=== PATIENT | male | born 1980 | race Caucasian/White ===

== ENCOUNTER 2024-02-21 19:26 | Emergency (ER) | payer MEDICAID, SELFPAY ==
[2024-02-21] VITALS (8 sets, daily range): BP systolic 99–136; BP diastolic 65–93; PULSE 95–158; RESP 20–22; TEMP 36.8; O2SAT 95–99; BMI 22.5
--- NOTE | 2024-02-21 19:53 | CT_ITS ---
STUDY: CT FACIAL BONES WITH CONTRAST REASON FOR EXAM: Male, 43 years old. post op pain. Recent repair of deviated septum. RADIATION DOSAGE (If Supplied By Facility): CTDIvol = ( 29.38 ) mGy, DLP = ( 738.45 ) mGycm TECHNIQUE: The patient was scanned in a multi detector CT scanner. Transaxial imaging was performed following the intravenous administration of IV 100mL Isovue-[id number]. Sagittal and coronal images were reconstructed. Individualized dose optimization techniques were used for this CT. COMPARISON: None. FINDINGS: There appears to be Packing material along both sides of the nasal septum, correlate with surgical history. Nasal septum currently appears to be grossly midline. Extensive soft tissue density pelvis all of the ethmoid air cells, much of the frontal sinuses, and both maxillary sinuses. The left maxillary sinus is completely opacified. The right shows an air fluid. Grossly normal appearance of the orbits. No fractures of the orbital bashir. There appear to be bilateral medial antrectomies. CT/Sinus/Facial Bone WITH Contras IMPRESSION: Pansinusitis status post septal surgery with what appear to be bilateral medial antrectomies. Question of surgical packing material along both sides of the nasal passages. Currently the nasal septum is midline. Electronically Signed: Rogers Hector MD at 21:52 EDT ,
[2024-02-21] MEDS: fentaNYL 100 MCG/2 ML Ampul 50 MCG IV (20:04)
[2024-02-21 20:07] LABS: Absolute Lymphocyte Count 2.21 X10^3/uL (0.83-4.51); Absolute Neutrophil Count 4.5 X10^3/uL (2.0-7.7); Basophil# 0.05 X10^3/uL; Basophil% 0.6 % (0-1); Eosinophil# 0.06 X10^3/uL; Eosinophils% 0.8 % (0-5); Hematocrit 41.4 % (40-54); Hemoglobin 14.6 g/dL (13.0-16.5); Lymphocyte # 2.21 X10^3/ul (0.83-4.51); Lymphocyte % 27.8 % (19-41); Mean Corp Hgb Conc 35.3 g/dL (32-36); Mean Corpuscular Hgb 31.3 pg (27.0-32.0); Mean Corpuscular Volume 88.8 fL (80-94); Mean Platelet Vol. 9.2 fl (6.2-12.0); Monocyte# 1.14 X10^3/uL; Monocyte% 14.3 % (0-10); NRBC Flagged by Analyzer 0 % (0-5); Neutrophil # 4.45 X10^3/uL (2.7-7.7); Neutrophil % 55.9 % (47-70); Platelet Count 271 K/mm3 (150-450); RBC Distribution Width CV 12.1 % (11.6-14.6); RBC Distribution Width SD 38.9 fl (35.1-43.9); Red Blood Count 4.66 M/mm3 (4.6-6.2)
--- OUTSIDE RECORDS SUMMARY | 2024-02-21 20:18 | XMS RPT_ITS | CCD ---
Author Organization [facility] Care Team Providers Care Composite Worker Name Role Phone PHYSICIAN, NOT RECORDED Primary Care Physician U navailable Unavailable Primary Care Provider Unavailabl e Sheets DOSavana Primary Care Provider [phone] SAVANA LOUIE Attending Unavailable SAVANA LOUIE Primary Care Unavailable Sheets DOSavana Primary Care Provider [phone] ALBERTO ALVAREZ Admitting Unavailable SAVANA LOUIE Primary Care Unavailable ALBERTO ALVAREZ Attending Unavailable SAVANA LOUIE Primary Care Unavailable ALBERTO ALVAREZ Attending Unavailable ALBERTO ALVAREZ Attending Unavailable ALBERTO ALVAREZ Referring Unavailable Medications Current Medications Medication Drug Class(es) Dates Sig (Normalized) Sig (Original) acetaminophen 325 mg / HYDROcodone bitartrate 5 mg oral tablet (2 sources) Opioid Agonist Start: 02-16-2024 End: 02-21-2024 take 1 tablet by mouth every six hours as needed for pain HYDROcodone-aceta minophen (Wagener) 5-325 MG tablet Indications: Deviated nasal septum Take 1 tablet by mouth every 6 hours as needed for severe pain (7-10) for up to 5 days. 20 tablet 02/16/2024 02/21/2024 Active fluticasone propionate 0.05 mg/actuat metered dose nasal spray (2 sources) Corticosteroid Start: 09-16-2023 take 2 spray(s) nasal route once daily fluticasone (Flonase) 50 MCG/ACT nasal spray Administer 2 sprays into each nostril daily. 09/16/2023 Active melatonin 10 mg oral tablet (1 source) take 3 tablets by mouth once daily at bedtime melatonin 10 mg tab Take 30 mg by mouth daily at bedtime. Active QUEtiapine 25 mg oral tablet (2 sources) Atypical Antipsychotic take 1 tablet by mouth once daily QUEtiapine (SEROquel) 25 MG tablet Take 25 mg by mouth Nightly. Active traZODone hydrochloride 50 mg oral tablet (1 source) Serotonin Reuptake Inhibitor Start: 05-16-2023 take 1 tablet by mouth once daily at bedtime traZODone (DESYREL) 50 mg tablet Indications: Chronic insomnia Take 1 tablet by mouth daily at bedtime. 30 tablet 11 05/16/2023 Active Completed/Discontinued Medications Medication Drug Class(es) Dates Sig (Normalized) Sig (Original) acetaminophen 500 mg oral tablet (2 sources) Start: 02-16-2024 End: 02-16-2024 1,000 mg, Oral, Once, On Jazmin 02/16/24 at 0615, For 1 dose, Preprocedure, Administer 60 minutes prior to surgery. ALPRAZolam 0.5 mg disintegrating oral tablet (2 sources) Benzodiazepine Start: 02-16-2024 End: 02-16-2024 0.5 mg, Oral, PRN, anxiety, Starting on Jazmin 02/16/24 at 0616, Preprocedure, Using dry hands, place tablet on top of tongue and allow to disintegrate. Administration with water is not necessary. calcium chloride 0.0014 meq/ml / potassium chloride 0.004 meq/ml / sodium chloride 0.103 meq/ml / sodium lactate 0.028 meq/ml injectable solution (2 sources) Start: 02-16-2024 End: 02-16-2024 take 50 mL intravenously every hour 50 mL/hr, IntraVENous, Continuous, Starting on Jazmin 02/16/24 at 0615, Preprocedure, Upon admission to sameday - please start iv if patient does not have iv access. Use 500ml NS for patients on dialysis. 1 ml diphenhydrAMINE hydrochloride 50 mg/ml cartridge (2 sources) Histamine-1 Receptor Antagonist Start: 02-16-2024 End: 02-16-2024 12.5 mg, IntraVENous, Once PRN, itching, Starting on Jazmin 02/16/24 at 0942, For 1 dose, Recovery (only) 1 ml HYDROmorphone hydrochloride 1 mg/ml cartridge (4 sources) Opioid Agonist Start: 02-16-2024 End: 02-16-2024 0.5 mg, IntraVENous, Every 5 min PRN, severe pain (7-10), Starting on Jazmin 02/16/24 at 0942, For 4 doses, Recovery (only), For Phase I. If Phase II oral narcotics have been administered in the last 60 minutes, do not administer IV narcotics unless specifically approved by provider. Start: 02-16-2024 End: 02-16-2024 0.25 mg, IntraVENous, Every 5 min PRN, moderate pain (4-6), Starting on Jazmin 02/16/24 at 0942, For 4 doses, Recovery (only), For Phase I. If Phase II oral narcotics have been administered in the last 60 minutes, do not administer IV narcotics unless specifically approved by provider. labetalol (Normodyne,Trandate) injection 5 mg (2 sources) Start: 02-16-2024 End: 02-16-2024 labetalol (Normodyne,Trandate) injection 5 mg 1 ml LORazepam 2 mg/ml injection (4 sources) Benzodiazepine Start: 02-16-2024 End: 02-16-2024 0.5 mg, IntraVENous, Once PRN, for anxiety or muscle spasm., Starting on Jazmin 02/16/24 at 0942, For 1 dose, Recovery (only), For IV doses dilute dose with 1ml NS. LORazepam (Ativa n) 1 MG tablet Take 1 mg by mouth as needed for anxiety. Active 1 ml meperidine hydrochloride 25 mg/ml cartridge (2 sources) Opioid Agonist Start: 02-16-2024 End: 02-16-2024 12.5 mg, IntraVENous, Every 5 min PRN, shivering, Starting on Jazmin 02/16/24 at 0942, For 2 doses, Recovery (only), May give every 5 minutes to max of 25mg. Notify Anesthesia Provider before administration. 2 ml ondansetron 2 mg/ml injection (2 sources) Serotonin-3 Receptor Antagonist Start: 02-16-2024 End: 02-16-2024 4 mg, IntraVENous, Once PRN, nausea, Starting on Jazmin 02/16/24 at 0942, For 1 dose, Recovery (only), Initial antiemetic therapy. oxyCODONE (2 sources) Opioid Agonist Start: 02-16-2024 End: 02-16-2024 oxyCODONE (Roxicodone) immediate release tablet 5 mg oxymetazoline hydrochloride 0.5 mg/ml nasal spray (2 sources) Start: 02-16-2024 End: 02-16-2024 2 spray, Each Nostril, Senior Internet Sales Consultant to [employer]., On Jazmin 02/16/24 at 0615, For 1 dose, Preprocedure 50 ml sodium chloride 9 mg/ml injection (8 sources) Start: 02-16-2024 End: 02-16-2024 500 mL, IntraVENous, at 1,000 mL/hr, Administer over 0.5 Hours, PRN, Anti-nausea, Starting on Jazmin 02/16/24 at 0942, Recovery (only), Indications: Anti-nausea Start: 02-16-2024 End: 02-16-2024 take 100 mL intravenously every hour as needed, then take 20 mL intravenously every hour as needed 5-250 mL/hr, IntraVENous, PRN, if patient receiving piggyback infusions and maintenance fluids are not ordered OR KVO fluids to protect IV site / prevent frequent line interruptions / long duration, Starting on Jazmin 02/16/24 at 0603, Preprocedure, For piggyback infusion, administer at same rate as piggyback for a total of 25 mL. Enter 25 mL into dose field and piggyback rate into rate field of order. If piggyback is infusing at a rate less than 100 mL/hr, enter 25 mL into dose field and 100 mL/hr into rate field of order. For KVO fluids, enter rate of 20 mL/hr or less into rate field of order. Start: 02-16-2024 End: 02-16-2024 5-40 mL, IntraVENous, PRN, l ine care, After every IV line use, Starting on Jazmin 02/16/24 at 0603, Preprocedure, For Line Patency: Peripheral IV = 5 mL; Midline or Central Line = 10 mL/lumen. If following IV push medication, administer flush at same rate as the IV push. Flush volume is determined by type of infusion therapy being given. For non-viscous solutions use: Peripheral IV = 5 mL Midline or Central Line = 10 mL/lumen For viscous solutions (i.e. blood components, parenteral nutrition, contrast media, or after obtaining blood sample) use: Peripheral IV = 10 mL Midline or Central Line = 20 mL/lumen Start: 02-16-2024 End: 02-16-2024 take 5-40 mL intravenously every twelve hours 5-40 mL, IntraVENous, Every 12 hours, First dose on Jazmin 02/16/24 at 0615, Preprocedure, For Line Patency: Peripheral IV = 5 mL; Midline or Central Line = 10 mL/lumen. If following IV push medication, administer flush at same rate as the IV push. Flush volume is determined by type of infusion therapy being given. For non-viscous solutions use: Peripheral IV = 5 mL Midline or Central Line = 10 mL/lumen For viscous solutions (i.e. blood components, parenteral nutrition, contrast media, or after obtaining blood sample) use: Peripheral IV = 10 mL Midline or Central Line = 20 mL/lumen Problems Active Problems Problem Classification Problem Date Documented Da te Episodic/Chronic Anxiety disorders (3 sources) Anxiety disorder; Translations: [Anxiety disorder, unspecified] Onset: 12-11-2022 Chronic Miscellaneous mental health disorders (2 sources) Chronic insomnia; Translations: [Psychophysiologic insomnia] Onset: 05-16-2023 05-16-2023 Chronic Other upper respiratory disease (3 sources) Chronic rhinitis; Translations: [Chronic rhinitis] Onset: 02-16-2024 02-16-2024 Chronic Other upper respiratory disease (1 source) Chronic rhinitis; Translations: [Chronic rhinitis] Onset: 02-16-2024 Chronic Other upper respiratory disease (3 sources) Deviated nasal septum; Translations: [Deviated nasal septum] Onset: 05-16-2023 05-16-2023 Episodic Other upper respiratory disease (3 sources) Deviated nasal septum; Translations: [Deviated septum] Onset: 05-16-2023 Episodic Other upper respiratory disease (3 sources) Hypertrophy of nasal turbinates; Translations: [Hypertrophy of nasal turbinates] Onset: 02-16-2024 02-16-2024 Episodic Other upper respiratory disease (1 source) Hypertrophy of nasal turbinates; Translations: [Hypertrophy of nasal turbinates] Onset: 02-16-2024 Episodic Other upper respiratory infections (8 sources) Chronic maxillary sinusitis; Translations: [Chronic maxillary sinusitis] Onset: 02-16-2024 02-16-2024 Chronic Past or Other Problems Problem Classification Problem Date Documented Da te Episodic/Chronic Cardiac dysrhythmias (2 sources) Palpitations; Translations: [Palpitations] Onset: 12-11-2022 Episodic Other ear and sense organ disorders (1 source) Tinnitus of left ear; Translations: [Tinnitus, left ear] Onset: 05-16-2023 05-16-2023 Episodic Other ear and sense organ disorders (1 source) Tinnitus, left ear; Translations: [Tinnitus of left ear] Onset: 05-16-2023 Episodic Other screening for suspected conditions (not mental disorders or infectious disease) (5 sources) Encounter for screening for lipoid disorders; Translations: [Encounter for screening for other suspected endocrine disorder] Onset: 05-16-2023 Episodic Other upper respiratory disease (4 sources) Nasal congestion; Translations: [Nasal congestion] Onset: 09-29-2023 09-29-2023 Episodic Other upper respiratory disease (1 source) Nasal congestion; Translations: [Nasal congestion] Onset: 09-29-2023 Episodic Results Test Name Value Interpretation Reference Range Facility Nursing Noteon 02-16-2024 Nursing Note Pt awake and taking with DR. Alvarez and his who is in the room, pt states he is ready to go, declines offer of something to drink, rates pain at a 4 and states this is tolerable to him Phase II indicated, pt awake and talking, VS stable, pt dressed and ambulated to wheelchair without difficulty, home going instructions reviewed with patient, verbal understanding demonstrated and opportunity given for questions Normal [facility] Nursing Note Pt received from OR via cart, spont. Resp. With PURCHASING SUPERVISOR in attendance. Placed on monitor. Monitor alarms on in PACU Pt awake and talking Normal [facility] Op Noteon 02-16-2024 Op Note OPERATIVE NOTE Patient Name: Heraclio Keys DATE OF PROCEDURE: 02/16/2024 SURGEON: Alberto Alvarez DO PREOPERATIVE DIAGNOSES: Pre-op Diagnosis * Deviated nasal septum [J34.2] * Chronic maxillary sinusitis [J32.0] * Chronic ethmoidal sinusitis [J32.2] * Chronic rhinitis [J31.0] * Hypertrophy of nasal turbinates [J34.3] POSTOPERATIVE DIAGNOSES: same PROCEDURE: Procedure(s): SEPTOPLASTY; BILATERAL INFERIOR TURBINATE REDUCTION; BILATERAL LATERA IMPLANT; BILATERAL MAXILLARY ANTROSTOMY; BILATERAL TOTAL ETHMOIDECTOMY; STEREOTACTIC COMPUTER-ASSISTED (NAVIGATIONAL) PROCEDURE SUBMUCOUS RESECTION INFERIOR TURBINATE REPAIR OF NASAL VALVE COLLAPSE WITH SUBCUTANEOUS/SUBMUC OSAL LATERAL WALL IMPLANT(S) NASAL SINUS ENDOSCOPY WITH MAXILLARY ANTROSTOMY NASAL SINUS ENDOSCOPY WITH ETHMOIDECTOMY TOTAL ANTERIOR AND POSTERIOR STEREOTACTIC CRANIOTOMY CRANIAL EXTRADURAL ENDOSCOPIC EXCISION LEBRON BULLOSA LEFT MIDDLE TURBINATE ANESTHESIA: General COMPLICATIONS: NONE ESTIMATED BLOOD LOSS: Minimal GROSS FINDINGS: Nasal endoscopy reveals a significant septal deviation to the right with spurring over the maxillary crest to the left. There is bilateral inferior turbinate enlargement, right-sided more than left. The left middle turbinate was bulbous due to an underlying lebron bullosa. There is a polyp filling the left middle meatus. There is marked amount of edema circumferentially and obstructing the left maxillary sinus. Mucosal edema extended throughout the ethmoid air cells on the left anteriorly more so. The left maxillary sinus was completely filled with yellow purulence. The right middle turbinate was atrophic. There is moderate edema within the mucosa of the right middle meatus. There were a couple moderately sized polyps located within the posterior right ethmoids. DESCRIPTION OF PROCEDURE: Anterior rhinoscopy was performed. The nasal mucosa was locally infiltrated using 1% lidocaine with 1: 100,000 epinephrine into the anterior aspect of the left and right anterior septal mucosa regions. Good blanching of the mucosa was evident as the injection was provided in a submucosal plane. 4% cocaine packs were then applied to cotton plexus and placed within the left right nasal cavities. Time was allowed for vasoconstriction. During this time the facial area was prepped with a Betadine solution and the patient draped in the usual sterile fashion. Note that the endoscopic portion of the surgery was performed using one 0 degree rigid endoscope with its image projected onto a monitor for viewing by all operating room personnel. Sinus dissection was performed using the [employer] microdebrider with a 4.0 mm aggressive cutting bur placed in an oscillation mode. The left lebron bullosa was then addressed, which caused a bulbous affect compromising the middle meatus. The debrider was positioned within the middle meatus with the serrated teeth applied against the lateral aspect of the middle turbinate and lamellar bone. The lateral aspect was carefully shaved to remove the lamellar bone and lateral mucosa taking care to ensure stability of the lebron bone superiorly. The mucosa and lateral lamella were shaved until the entire underlying air cell pocket was exposed, especially by involving the middle turbinate. The medial middle turbinate with its attachment superiorly remained intact. The left maxillary sinus was then addressed. 1% lidocaine with 1: 100,000 epinephrine was infiltrated into the uncinate process and middle turbinate followed by placement of a 4% cocaine packed within the meatus itself. The uncinate process was identified. A side-biting forceps was used to create a posterior to anterior infundibulotomy incision in the midportion of the uncinate process. The shaver device was used to debride and remove the superior and inferior halves of the uncinate process. The natural ostia of the maxillary sinus was identified in this location confirmed with a sinus seeker. Any edematous mucosa was shaved free from its inferior and posterior aspects using the debrider. The left ethmoids were then dissected. The bulla ethmoidalis was entered using the microdebrider shaver. It was entered within its inferior medial aspect. An anterior ethmoidectomy was performed. The basal lamella was then dissected as the posterior ethmoid air cells were then exposed and ventilated. Dissection throughout was completed by removing any thickened and edematous mucosa as well as the bony septations. Dissection was carried posteriorly to a depth of 7 cm as measured from the nasal vestibule. Dissection was then carried anteriorly along the roof of the ethmoids using a curette, up-biting forceps, and the shaver device. All bony septations were removed to create a well ventilated ethmoid cavity. The right maxillary sinus was then addressed. 1% lidocaine with 1: 100,000 epinephrine was infiltrated (more content not included)... [facility] [id number] 02-09-2024 [id number] Telemedicine: Patient was seen today via Telehealth by agreement and consent. I used the following Telehealth technology: Audio & Video Visit This patient encounter is appropriate and reasonable under the circumstances given the patient's particular presentation at this time with the plan to undergo a surgical procedure located at an outpatient surgical center. The patient has been advised of the potential risks and limitations of this mode of treatment (including but not limited to the absence of in-person examination) and has agreed to be treated in a remote fashion in spite of them. Any and all of the patient's/patient's family's questions on this issue have been answered and I have made no promises or guarantees to the patient. The patient has also been advised to contact their PCP or surgeon's office for worsening conditions or problems, and seek emergency medical treatment and/or call 911 if the patient deems either necessary. The patient stated that they are currently in the state [facility]. If the patient is a minor, permission has been obtained by the parent or guardian for the patient to receive medical care at this visit. The patient verbally consented to the visit held via telephone/video call. The patient understands the limitations of not being physically examined and that we may not be able to address all issues via a telehealth visit. Pre-Surgical History Name: Heraclio Keys : 1980 (Age-43 y.o.) Date of Service: Pt seen/examined on 02/09/2024 Chief Complaint: Pre-surgical evaluation, deviated septum History Of Present Illness: We are asked to see/evaluate Heraclio Keys, a 43 y.o. male for pre-operative evaluation prior to Procedure Information Date/Time: 02/16/24 59 Procedures: SEPTOPLASTY; BILATERAL INFERIOR TURBINATE REDUCTION; BILATERAL LATERA IMPLANT; BILATERAL MAXILLARY ANTROSTOMY; BILATERAL TOTAL ETHMOIDECTOMY; STEREOTACTIC COMPUTER-ASSISTED (NAVIGATIONAL) PROCEDURE (Nose) - total time 180 minutes SUBMUCOUS RESECTION INFERIOR TURBINATE (Bilateral: Nose) REPAIR OF NASAL VALVE COLLAPSE WITH SUBCUTANEOUS/SUBMUC OSAL LATERAL WALL IMPLANT(S) (Bilateral: Nose) NASAL SINUS ENDOSCOPY WITH MAXILLARY ANTROSTOMY (Bilateral: Nose) NASAL SINUS ENDOSCOPY WITH ETHMOIDECTOMY TOTAL ANTERIOR AND POSTERIOR (Bilateral: Nose) STEREOTACTIC CRANIOTOMY CRANIAL EXTRADURAL (Head) Location: [address] Operating Room Surgeons: Alberto Alvarez DO Heraclio Keys presents with c/o chronic nasal obstruction and recurrent sinus infections x several years. Also endorses nasal congestion, rhinorrhea, facial pressure, and drainage. Denies fever. Conservative measures have provided little relief. Has elected for procedure above. Anesthesia Assessment BMI Classification: Normal Weight (BMI 18.5-24.9) Allergies: Patient has no known allergies. If patient has opioid allergy, is it okay to take Acetaminophen: N/A Any Problems with Anesthesia?: Past General Anesthetic without complications History of Difficult Intubation?: None reported Family History of Problems with Anesthesia?: None noted Overall Dentition: Teeth intact with none loose, has gold tooth top left towards the back Dentures: None Partials: None Mallampati PAT assesment: 2 Mouth Size: WNL TMD: >4cm Neck: WNL GERD:None Implantable Devices:None PAT Pain Score:1 +Pre-op anxiety METs (>4 METS implies low cardiovascular risk from surgery): Reports >4 METs - Able to climb a flight of stairs without chest pain Cardiac Stents:No History of CVA:No History of Seizures:No COPD/Asthma:No MARCELLA: Noncompliant on CPAP Anticoagulant/Antip latelet Therapy: No Chronic Steroid Use:No Chronic Narcotic Use: No Social History: ETOH: reports that he does not currently use alcohol. Social History Substance and Sexual Activity Drug Use Never TOBACCO: reports that he does not have a smoking history on file. His smokeless tobacco use includes chew. Tobacco:Patient instructed preoperatively not to smoke day of surgery and patient received smoking cessation counseling. ASA Score:2 Cardiac EKG: No results found for this or any previous visit. ECHO and EF: No results found for this or any previous visit. ASSESSMENT/PLAN: Based on the above evaluation, the benefits of the planned procedure likely exceed the risks. The patient is medically optimized to proceed with the intermediate - level 1 risk procedure/surgery with no reducible risk factor and without any further cardiopulmonary testing. 1) Deviated nasal septum [J34.2], Chronic maxillary sinusitis [J32.0], Chronic ethmoidal sinusitis [J32.2], Chronic rhinitis [J31.0], Hypertrophy of nasal turbinates [J34.3] - Deferred to surgeon - Pre-surgical instructions given to patient - No further workup required per PAT Protocol Labs Ordered: No EKG Ordered: No Sleep Referral Ordered: NO - ALREADY DIAGNOSED WITH MARCELLA (more content not included)... [facility] PREPROCINSon 02-09-2024 PREPROCINS Medication List Accurate as of February 09, 2024 10:23 AM. Always use your most recent med list. LORazepam 1 MG tablet Commonly known as: Ativan Medication Adjustments for Surgery: Other (Comment) Notes to patient: Take as needed QUEtiapine 25 MG tablet Commonly known as: SEROquel Medication Adjustments for Surgery: Take night before surgery Preparing for Your Surgical Procedure Day of Surgery Please arrive 2 hours prior to your scheduled surgery time Arrange for a responsible adult to drive you home after surgery Bring a photo ID and your insurance information Take a bath or shower using antibacterial soap such as Dial or Safeguard before coming to the hospital Do not shave the skin around your surgical site Wash your hair Wear loose fitting clothing to go home in Take medications as directed Do not bring valuables to the hospital Do not wear jewelry, piercings, makeup, hair spray, powder, lotion, deodorant You may bring dentures, hearing aids, and eyeglasses (please do not wear contacts on the day of surgery) Anesthesia Instructions for Eating and Drinking Take your instructed medicines with water [place] your teeth, floss, use mouth wash No food 8 hours prior to your scheduled surgery time (includes tube feeds) We encourage you to drink clear fluids up to 2 hours prior your scheduled surgery time, including: Water Apple or cranberry juice (NO orange juice, nothing with pulp) Black coffee or clear tea (NO creamer or milk) Clear soda Sports drinks Patients with diabetes, please opt for a ?zero? sugar clear fluid, as surgery may be cancelled or delayed for blood sugar >250 on the day of surgery Medications Take medications as directed Pain medications You may take your prescription pain medications You may take Tylenol for pain NO Motrin, Ibuprofen, or Advil for 24 hours prior to surgery or longer if instructed by your surgeon No Aleve or Naprosyn for 5 days prior to surgery or longer if instructed by your surgeon IF YOU TAKE BLOOD THINNERS OR ASPIRIN: N/A Lab work If lab work was ordered during your Tele-PAT visit, please complete them at a [facility] lab as soon as possible. Your nearest [facility] lab can be found on the [facility] website at: [email or web address] [facility] labs located within [facility]: [email or web address] Miscellaneous information If you have sleep apnea and use a CPAP, please bring your CPAP to the hospital the morning of surgery No marijuana (THC), smoking, or alcohol for 24 hours prior to surgery The use of recreational drugs may result in your surgery being cancelled We encourage you to write down any questions you may have for the surgeon, anesthesiologist, or other members of the surgical team and bring it with you the day of surgery. [place] Entrance Instructions Enter through Door number 2 Registration department is located here Patient will be escorted to [facility] does not open before 6am If you become ill or display other medical problems before your procedure, please let your surgeon know right away. Normal [facility] CNCOon 12-19-2023 CNCO Letter Text Normal [facility] CNPNon 12-19-2023 CNPN Telephone (AGFAMPLE) ---- ANGHERACLIO Meza ([phone]) 1980 M Date Time Provider Department 12/19/23 SAVANA LOUIE During your visit today, we recorded the following information about you: Kemi Hutton 12/19/2023 4:41 PM Signed No Show Documentation Heraclio Keys no showed for an appointment on 12/19/23 with Savana Louie DO at 4:00 pm. He was scheduled for shoulder pain. I called and was unable to speak with the patient regarding his missed appointment. Heraclio did not state the reason that he missed his appointment was because unable to reach pt . Resources discussed/offered to patient: unable to leave message. No show determined to be fault of patient: Yes This is the patients first no show in the last 12 months. Patient was rescheduled for NA. Letter sent through [employer]. Is this the Third or Fourth No Show ? No Kemi Hutton December 19, 2023 4:39 PM Allergies As of Date: 12/19/2023 (No Known Allergies) Date Reviewed: 05/16/2023 Reviewed by: Savana Louie DO - Fully Assessed Reason for Visit: No Show [1558] Cmt: Pt no showed for appt on 12/19/23 Prescriptions as of 12/19/2023 - melatonin 10 mg tab Take 30 mg by mouth daily at bedtime. - traZODone (DESYREL) 50 mg tablet Take 1 tablet by mouth daily at bedtime. Problem List As Of Date 12/19/2023 Noted Resolved Deviated septum [J34.2] 05/16/2023 Tinnitus of left ear [H93.12] 05/16/2023 CHECO (generalized anxiety disorder) [F41.1] 05/16/2023 Chronic insomnia [F51.04] 05/16/2023 Encounter Status:Closed by KEMI HUTTON AKASH on 12/19/23 Normal [facility] CT MAXILLOFACIAL WO IV CONTR Stanislav 10-03-2023 CT MAXILLOFACIAL WO IV CONTRAST Patient Name: HERACLIO KEYS : 1980 Exam Date/Time: 09/29/2023 16:40 Procedure: CT MAXILLOFACIAL WO IV CONTRAST Ordering Provider: ALVAREZ MARK Reason For Exam: R09.81 CT SINUSES - IMAGE GUIDED PROTOCOL: CLINICAL INDICATION: Chronic sinusitis. TECHNIQUE: Spiral transaxial sequence was performed through the head, maxillofacial region, including orbits and sinuses, from the level of the skull base through the vertex with 1 mm slice thickness at 1 mm intervals. Coronal and sagittal reconstruction was included. Dose reduction was employed with automated exposure control. COMPARISON: None FINDINGS: There is complete aspiration of the left maxillary sinus. Bulging of the medial wall the maxillary sinuses noted and there is mucosal thickening within left ethmoid air cells. Minimal mucosal thickening also noted within the right maxillary sinus. Remaining paranasal sinuses are clear. The left middle turbinate is partially obscured. Remaining turbinates are unremarkable. Septum is slightly deviated to the right along its midportion by up to 0.5 cm. The mastoid air cells are clear. Rudimentary evaluation of the brain demonstrates no apparent focal lesion throughout the cerebrum or cerebellum. The ventricles maintain normal size and configuration. There is no apparent extracerebral collection. IMPRESSION: Opacified left maxillary sinus and left anterior ethmoid air cells. Report Dictated on Electronically Signed By: Mukesh Harvey MD Electronically Signed Date/Time: 10/03/2023 11:55 AM EDT TROUBLE BREATHING BROKEN NOSE A FEW TIMES WHEN HE WAS YOUNGER Normal [facility] CT Maxillofacial region WO a nd W contrast Charlene 10-03-2023 Opacified left maxillary sinus and left anterior ethmoid air cells. Report Dictated on Electronically Signed By: Mukesh Harvey MD Electronically Signed Date/Time: 10/03/2023 11:55 AM EDT [facility] Patient Name: HERACLIO KEYS : 1980 Exam Date/Time: 09/29/2023 16:40 Procedure: CT MAXILLOFACIAL WO IV CONTRAST Ordering Provider: ALVAREZ MARK Reason For Exam: R09.81 CT SINUSES - IMAGE GUIDED PROTOCOL: CLINICAL INDICATION: Chronic sinusitis. TECHNIQUE: Spiral transaxial sequence was performed through the head, maxillofacial region, including orbits and sinuses, from the level of the skull base through the vertex with 1 mm slice thickness at 1 mm intervals. Coronal and sagittal reconstruction was included. Dose reduction was employed with automated exposure control. COMPARISON: None FINDINGS: There is complete aspiration of the left maxillary sinus. Bulging of the medial wall the maxillary sinuses noted and there is mucosal thickening within left ethmoid air cells. Minimal mucosal thickening also noted within the right maxillary sinus. Remaining paranasal sinuses are clear. The left middle turbinate is partially obscured. Remaining turbinates are unremarkable. Septum is slightly deviated to the right along its midportion by up to 0.5 cm. The mastoid air cells are clear. Rudimentary evaluation of the brain demonstrates no apparent focal lesion throughout the cerebrum or cerebellum. The ventricles maintain normal size and configuration. There is no apparent extracerebral collection. [facility] Mukesh Harvey MD - 10/03/2023 Patient Name: HERACLIO KEYS : 1980 Exam Date/Time: 09/29/2023 16:40 Procedure: CT MAXILLOFACIAL WO IV CONTRAST Ordering Provider: ALVAREZ MARK Reason For Exam: R09.81 CT SINUSES - IMAGE GUIDED PROTOCOL: CLINICAL INDICATION: Chronic sinusitis. TECHNIQUE: Spiral transaxial sequence was performed through the head, maxillofacial region, including orbits and sinuses, from the level of the skull base through the vertex with 1 mm slice thickness at 1 mm intervals. Coronal and sagittal reconstruction was included. Dose reduction was employed with automated exposure control. COMPARISON: None FINDINGS: There is complete aspiration of the left maxillary sinus. Bulging of the medial wall the maxillary sinuses noted and there is mucosal thickening within left ethmoid air cells. Minimal mucosal thickening also noted within the right maxillary sinus. Remaining paranasal sinuses are clear. The left middle turbinate is partially obscured. Remaining turbinates are unremarkable. Septum is slightly deviated to the right along its midportion by up to 0.5 cm. The mastoid air cells are clear. Rudimentary evaluation of the brain demonstrates no apparent focal lesion throughout the cerebrum or cerebellum. The ventricles maintain normal size and configuration. There is no apparent extracerebral collection. IMPRESSION: Opacified left maxillary sinus and left anterior ethmoid air cells. Report Dictated on Electronically Signed By: Mukesh Harvey MD Electronically Signed Date/Time: 10/03/2023 11:55 AM EDT [facility] CT Maxillofacial region WO a nd W contrast IVOrdered By: Mukesh Harvey on 10-03-2023 [facility] Work Phone: CT Maxillofacial region WO a nd W contrast Charlene 09-29-2023 Radiology Study observation (narrative) [facility] CNOVon 05-16-2023 CNOV Office Visit (AGFAMPLE) ---- HERACLIO KEYS ([id number]) 1980 M Date Time Provider Department 05/16/23 3:00 PM SAVANA LOUIE During your visit today, we recorded the following information about you: Temperature Pulse Respiration Blood pressure 98 degrees 64/minute 16/minute 112/72 Weight Height 73.5 kg 1.791 m Savana Louie DO 05/17/2023 2:00 PM Signed SUBJECTIVE: 43 year old male here to establish. I have fully reviewed the past medical, surgical, social and family history and updated the Histories section of [facility]. He has had anxiety and insomnia since he was a child He has taken OTC meds, but they caused his stomach to be upset Melatonin is not working He has always had social anxiety, has been able to control it up until now He had a couple of tragedies in the recent past He had a panic attack at work, went to the ED because he thought he was having a heart attack He quit his job because of the anxiety He has trouble falling asleep and occasionally is awakened by twitches and shock-like sensations in his whole body He would like a referral to a psychiatrist He broke his nose when he was 14 or 15 years old He is now having trouble breathing from his right nostril He has had ringing in his left ear for about 1-1/2 years He drinks 1-2 cups of tea in the morning, but no other caffeinated beverages throughout the day ALLERGIES No Known Allergies Current Outpatient Medications Medication Sig Dispense Refill melatonin 10 mg tab Take 30 mg by mouth daily at bedtime. pseudoephedrine (SUDAFED) 30 mg tablet Take 2 tablets by mouth twice daily. (Patient not taking: Reported on 05/16/2023) 20 tablet 0 fluticasone (FLONASE) 50 mcg/actuation nasal spray Use 2 Sprays in each nostril once daily. Rinse mouth after use. (Patient not taking: Reported on 05/16/2023) 1 Bottle 0 No current facility-administer ed medications for this visit. There is no problem list on file for this patient. Social History Tobacco Use Smoking status: Former Types: Cigarettes Smokeless tobacco: Current Types: Chew Vaping Use Vaping Use: Never used Substance Use Topics Alcohol use: Not Currently Drug use: Never Family History Problem Relation Age of Onset Diabetes Mother Hypertension Mother Hyperlipidemia Mother Stroke Mother Hyperlipidemia Sister Hypertension Sister Diabetes Sister Colon Cancer Maternal Grandmother Colon Cancer Maternal Grandfather Reviewed past medical history, family history and surgeries. All medications and supplements were reviewed with the patient. REVIEW OF SYSTEMS GENERAL: No weight loss, malaise or fevers HEENT: positive for tinnitus b/l, left greater than right, trouble breathing from right nare, negative for frequent or significant headaches, NECK: Negative for lumps, goiter, pain and significant neck swelling RESPIRATORY: Negative for cough, hemoptysis, wheezing, COPD, dyspnea or shortness of breath CARDIOVASCULAR: Negative for chest pain, leg swelling, hypertension, CHF or palpitations GI: No nausea, vomiting, or diarrhea : No history of dysuria, frequency or incontinence MUSCULOSKELETAL: Negative for joint pain or swelling, back pain or muscle pain SKIN: Negative for lesions, rash, and itching PSYCH: Positive for anxiety, insomnia HEMATOLOGY/LYMPHOLO GY: Negative for prolonged bleeding, bruising easily or swollen nodes ENDOCRINE: Negative for cold or heat intolerance, polyuria, polydipsia and goiter NEURO: No history of headaches, syncope, paralysis, seizures or tremors PHYSICAL EXAMINATION: BP 112/72 Pulse 64 Temp 36.7 ?C (98 ?F) Resp 16 Ht 179.1 cm (5' 10.5 ) Wt 73.5 kg (162 lb) SpO2 98% BMI 22.92 kg/m? General appearance: Well appearing, alert, in no acute distress, well-hydrated, well nourished. Skin: Skin color, texture, turgor normal, no suspicious rashes or lesions Head: Normocephalic, no masses, lesions, tenderness or abnormalities, septum deviated to the right Eyes: Anicteric sclera. Pupils are equally round and reactive to light. Extraocular movements are intact. Ears: External ears normal, canals clear Oropharynx: Lips, mucosa, and tongue normal, teeth and gums normal, oropharynx normal Neck: Supple, no adenopathy; thyroid symmetric, normal size, no bruits Back: Normal exam Lungs: Lungs clear to auscultation. No wheezing, rhonchi, rales. Heart: RRR without murmur, gallop, or rubs. No ectopy Abdomen: Normal abdominal exam, Abdomen soft, non-tender. Bowel sounds normal. No masses, organomegaly Extremities: No deformities, edema, skin discoloration, clubbing or cyanosis. Good capillary refill. Musculoskeletal: No joint swelling, deformity, or tenderness Peripheral pulses: Normal Neuro: Gait normal. Reflexes normal and symmetric. Sensation grossly intact. ASSESSMENT/PLAN: 1. We (more content not included)... Normal [facility] LABORATORYOrdered By: SYSTEM SYSTEM on 12-11-2022 Troponin I.cardiac DL <= 0.01 ng/mL [Mass/Vol] 4.6 ng/L Invalid Interpretation Code 0.0 - 76.2 ng/L AO ADM SS Basophil, Absolute 0.0 103/mcL Invalid Interpretation Code 0.0 - 0.2 10^3/mcL AO Workflow SS Basophils/100 WBC (Bld) 0.8 % Invalid Interpretation Code 0.0 - 2.5 % AO Workflow SS Calcium [Mass/Vol] 9.2 mg/dL Invalid Interpretation Code 8.4 - 10.2 mg/dL AO ADM SS Chloride [Moles/Vol] 93 mmol/L Invalid Interpretation Code 98 - 107 mmol/L AO ADM SS CO2 [Moles/Vol] 27 mmol/L Invalid Interpretation Code 22 - 29 mmol/L AO ADM SS Creatinine [Mass/Vol] 1.01 mg/dL Invalid Interpretation Code 0.70 - 1.30 mg/dL AO ADM SS Electrolyte Balance 15.0 mEq/L Invalid Interpretation Code 4.0 - 15.0 mEq/L AO ADM SS Eosinophil, Absolute 0.0 103/mcL Invalid Interpretation Code 0.0 - 0.4 10^3/mcL AO Workflow SS Eosinophils/100 WBC (Bld) 0.8 % Invalid Interpretation Code 0.0 - 7.0 % AO Workflow SS Erythrocyte distribution width (RBC) [Ratio] 12.4 % Invalid Interpretation Code 11.5 - 14.5 % AO Workflow SS Ethanol [Mass/Vol] 6 mg/dL Invalid Interpretation Code 0 - 3 mg/dL AO ADM SS Free T3 [Mass/Vol] 2.82 pg/mL Invalid Interpretation Code 2.30 - 4.00 pg/mL AO ADM SS Free T4 [Mass/Vol] 0.94 ng/dL Invalid Interpretation Code 0.76 - 1.46 ng/dL AO ADM SS GFR/1.73 sq M.predicted among blacks MDRD (S/P/Bld) [Vol rate/Area] 99 ml/min/1.73sqm Invalid Interpretation Code AO Chemistry S Comment on above: Interpretive Data: GFR Population mean for , Non- Americans Ages 20-29 = 116 mL/min/1.73 sq.m. Ages 30-39 = 107 mL/min/1.73 sq.m. Ages 40-49 = 99 mL/min/1.73 sq.m. Ages 50-59 = 93 mL/min/1.73 sq.m. Ages 60-69 = 85 mL/min/1.73 sq.m. Ages 70+ = 75 mL/min/1.73 sq.m. Chronic Kidney Disease: Less than 60 mL/min/1.73 square meters End Stage Renal Disease: Less than 15 mL/min/1.73 square meters GFR/1.73 sq M.predicted among non-blacks MDRD (S/P/Bld) [Vol rate/Area] 82 ml/min/1.73sqm Invalid Interpretation Code AO Chemistry S Comment on above: Interpretive Data: GFR Population mean for , Non- Americans Ages 20-29 = 116 mL/min/1.73 sq.m. Ages 30-39 = 107 mL/min/1.73 sq.m. Ages 40-49 = 99 mL/min/1.73 sq.m. Ages 50-59 = 93 mL/min/1.73 sq.m. Ages 60-69 = 85 mL/min/1.73 sq.m. Ages 70+ = 75 mL/min/1.73 sq.m. Chronic Kidney Disease: Less than 60 mL/min/1.73 square meters End Stage Renal Disease: Less than 15 mL/min/1.73 square meters Glucose [Mass/Vol] 298 mg/dL Invalid Interpretation Code 70 - 105 mg/dL AO ADM SS Hematocrit (Bld) [Volume fraction] 44.8 % Invalid Interpretation Code 42.0 - 52.0 % AO Workflow SS Hemoglobin (Bld) [Mass/Vol] 15.3 G/dL Invalid Interpretation Code 14.0 - 18.0 G/dL AO Workflow SS Lymphocyte, Absolute 0.9 103/mcL Invalid Interpretation Code 0.8 - 3.9 10^3/mcL AO Workflow SS Lymphocytes/100 WBC (Bld) 19.4 % Invalid Interpretation Code 10.0 - 50.0 % AO Workflow SS Magnesium [Mass/Vol] 1.7 mg/dL Invalid Interpretation Code 1.8 - 2.4 mg/dL AO ADM SS MCH (RBC) [Entitic mass] 32.4 pg Invalid Interpretation Code 27.0 - 31.2 pg AO Workflow SS MCHC 34.2 G/dL Invalid Interpretation Code 31.8 - 35.4 G/dL AO Workflow SS MCV (RBC) [Entitic vol] 94.7 fL Invalid Interpretation Code 80.0 - 94.0 fL AO Workflow SS Monocyte distribution width Auto (Bld) [Entitic vol] 16.61 1 Invalid Interpretation Code 0.00 - 20.00 AO Workflow SS Comment on above: Result Comment: For ED adult patients suspected of sepsis, MDW<=20.0 does not rule out sepsis or risk of sepsis Monocyte, Absolute 0.2 103/mcL Invalid Interpretation Code 0.2 - 1.0 10^3/mcL AO Workflow SS Monocytes/100 WBC (Bld) 5.4 % Invalid Interpretation Code 1.7 - 13.0 % AO Workflow SS Natriuretic peptide.B prohormone N-Terminal [Mass/Vol] 26 pg/mL Invalid Interpretation Code 0 - 125 pg/mL AO ADM SS Comment on above: Interpretive Data: N T-proBNP results of less than 300 pg/mL effectively rules out acute congestive heart failure with 99% negative predictive value. Neutrophil, Absolute 3.3 103/mcL Invalid Interpretation Code 2.9 - 6.2 10^3/mcL AO Workflow SS Neutrophils/100 WBC (Bld) 73.6 % Invalid Interpretation Code 37.0 - 80.0 % AO Workflow SS Platelet mean volume (Bld) [Entitic vol] 7.4 fL Invalid Interpretation Code 7.4 - 10.4 fL AO Workflow SS Platelets (Bld) [#/Vol] 277 103/mcL Invalid Interpretation Code 130 - 400 10^3/mcL AO Workflow SS Potassium [Moles/Vol] 4.4 mmol/L Invalid Interpretation Code 3.5 - 5.1 mmol/L AO ADM SS RBC (Bld) [#/Vol] 4.73 106/mcL Invalid Interpretation Code 4.04 - 6.13 10^6/mcL AO Workflow SS Salicylates [Mass/Vol] mg/dL Invalid Interpretation Code 2.8 - 20.0 mg/dL AO ADM SS Sodium [Moles/Vol] 135 mmol/L Invalid Interpretation Code 136 - 145 mmol/L AO ADM SS Troponin I.cardiac DL <= 0.01 ng/mL [Mass/Vol] ng/L Invalid Interpretation Code 0.0 - 76.2 ng/L AO ADM SS TSH Qn 0.35 m[IU]/L Invalid Interpretation Code 0.36 - 3.74 mcIU/mL AO ADM SS Urea nitrogen [Mass/Vol] 13 mg/dL Invalid Interpretation Code 7 - 18 mg/dL AO ADM SS Urea nitrogen/Creatinine [Mass ratio] 13 ratio Invalid Interpretation Code 7 - 27 ratio AO ADM SS WBC (Bld) [#/Vol] 4.5 103/mcL Invalid Interpretation Code 4.6 - 10.8 10^3/mcL AO Workflow SS LABORATORYOrdered By: Nimo Sharp on 12-11-2022 Acetaminophen [Mass/Vol] mcg/mL Invalid Interpretation Code 10.0 - 30.0 mcg/mL AO Chemistry S Amphetamines Screen Ql (U) Negative (12/11/22 11:05 AM) Invalid Interpretation Code AO Manual Urine SS Appearance (U) Clear (12/11/22 11:05 AM) Invalid Interpretation Code Clear AO Auto Urine SS Barbiturates Screen Ql (U) Negative (12/11/22 11:05 AM) Invalid Interpretation Code AO Manual Urine SS Benzodiazepines Ql (U) Positive (12/11/22 11:05 AM) Invalid Interpretation Code AO Manual Urine SS Benzoylecgonine Screen Ql (U) Negative (12/11/22 11:05 AM) Invalid Interpretation Code AO Manual Urine SS Bilirubin Ql (U) Small *ABN* (12/11/22 11:05 AM) Invalid Interpretation Code Negative AO Auto Urine SS Cannabinoids tested Screen Nom (U) Negative (12/11/22 11:05 AM) Invalid Interpretation Code AO Manual Urine SS Color (U) Yellow (12/11/22 11:05 AM) Invalid Interpretation Code AO Auto Urine SS Fibrin D-dimer DDU (PPP) [Mass/Vol] ng/mL D-DU Invalid Interpretation Code 0 - 230 ng/mL D-DU AO [facility] SS Comment on above: Interpretive Data: T he result of the D-Dimer test should be evaluated in the context of all the clinical and laboratory data available. In those instances where the laboratory result does not agree with the clinical evaluation, additional tests should be performed accordingly. If the D-Dimer result is used to exclude DVT or PE, the recommended cutoff value is less than 230 ng/mL. The D-Dimer result should not be used alone to rule in DVT/PE, but should be used in conjunction with a clinical pretest probability (PTP)assessment model to exclude venous thromboembolism (VTE) in outpatients suspected of deep venous thrombosis (DVT) and pulmonary embolism (PE). Glucose Test strip (U) [Mass/Vol] 500 mg/dL Invalid Interpretation Code Negative AO Auto Urine SS Hemoglobin Auto test strip (U) [Mass/Vol] Negative (12/11/22 11:05 AM) Invalid Interpretation Code Negative AO Auto Urine SS Ketones Ql (U) >=160 mg/dL Invalid Interpretation Code Negative AO Auto Urine SS Methadone Screen Ql (U) Negative (12/11/22 11:05 AM) Invalid Interpretation Code AO Manual Urine SS Opiates Screen Ql (U) Negative (12/11/22 11:05 AM) Invalid Interpretation Code AO Manual Urine SS Phencyclidine Ql (U) Negative (12/11/22 11:05 AM) Invalid Interpretation Code AO Manual Urine SS Tricyclic antidepressants Screen Ql (U) Negative (12/11/22 11:05 AM) Invalid Interpretation Code AO Manual Urine SS UA Leuk Est Negative (12/11/22 11:05 AM) Invalid Interpretation Code Negative AO Auto Urine SS UA Nitrite Negative (12/11/22 11:05 AM) Invalid Interpretation Code Negative AO Auto Urine SS UA pH 5.5 (12/11/22 11:05 AM) Invalid Interpretation Code 5.0 - 8.0 AO Auto Urine SS UA Protein Negative Invalid Interpretation Code Negative AO Auto Urine SS UA Spec Grav >=1.030 *ABN* (12/11/22 11:05 AM) Invalid Interpretation Code 1.015-1.025 AO Auto Urine SS UA Specimen Type Void (12/11/22 11:05 AM) Invalid Interpretation Code AO Auto Urine SS UA Urobilinogen 0.2 E.U./dL Invalid Interpretation Code 0.2-1.0 AO Auto Urine SS CNPNon 06-29-2020 [facility] Telephone ([facility]) ---- HERACLIO KEYS ([id number]) 1980 M Date Time Provider Department 06/29/20 DASHAWN BALDERRAMA) [facility] During your visit today, we recorded the following information about you: Dashawn Balderrama PA-C 06/29/2020 8:01 AM Signed Let patient know their covid19 test was negative. Jayashree Duran Ma 06/29/2020 4:01 PM Signed Unable to reach patient. Left VM to return call to office. Please read below and advise. Jayashree Sahu LPN 06/30/2020 8:03 AM Signed Patient returned call and went over results from urgent care provider with understanding. Allergies As of Date: 06/29/2020 (No Known Allergies) Date Reviewed: 06/28/2020 Reviewed by: Marilynn Gracia Ma - Fully Assessed Reason for Visit: Results [95] Prescriptions as of 06/29/2020 Sig: AMOXICILLIN 875 MG-POTASSIUM * Take 1 tablet by mouth twice * PSEUDOEPHEDRINE 30 MG TABLET Take 2 tablets by mouth twice* FLUTICASONE PROPIONATE 50 MCG* Use 2 Sprays in each nostril * Problem List As Of Date: 06/29/2020 (None) Encounter Status:Closed by CHILO SAHU LPN on 06/30/20 [facility] CNOVon 06-28-2020 CNOV Office Visit ([facility]) ---- HERACLIO KEYS ([id number]) 1980 M Date Time Provider Department 06/28/20 2:15 PM FABI CARLSON [facility] During your visit today, we recorded the following information about you: Temperature Pulse Respiration Blood pressure 98.4 degrees 76/minute 16/minute 142/72 Weight 70.3 kg Fabi Carlson APRN.ASHLEY 06/28/2020 3:02 PM Signed Subjective The history is provided by the patient. No medical language specialist was used. Heraclio Keys is a 40 year old male who presents today for CC of sinus pressure that is worsening. Symptoms started about a week ago, and have worsening in past 24 hours. His is also having nasal congestion, post nasal drainage. He states that 3 weeks ago had similar symptoms and they seemed to get better but the past week, started all over again. Symptoms include: Fever (?100.4F): No or Chills: Yes Cough: No Shortness of breath: No or Difficulty breathing: No Fatigue: Yes Muscle aches: No Headache: Yes New loss of smell or taste: No Sore throat: No Nasal congestion: Yes or Rhinorrhea: Yes Nausea: No or Vomiting: No Diarrhea: No OTC meds/remedies that patient has tried: OTC cold medicine and saline. High risk category assessment No high risk factors Exposures: Sick contacts? Yes Family or close contacts with confirmed/probable COVID-19 in last 14 days? No He reports that he has never smoked. He uses smokeless tobacco. BP 142/72 Pulse 76 Temp 36.9 ?C (98.4 ?F) (Tympanic) Resp 16 Wt 70.3 kg (155 lb) SpO2 98% Social History Tobacco Use - Smoking status: Never Smoker - Smokeless tobacco: Current User Substance Use Topics - Alcohol use: Not on file - Drug use: Not on file No past medical history on file. I have confirmed and edited as necessary, the [facility] Review of Systems Constitutional: Negative for chills and fever. HENT: Positive for congestion and sinus pain. Negative for ear pain and sore throat. Respiratory: Negative for cough, sputum production, shortness of breath and wheezing. Cardiovascular: Negative for chest pain. Musculoskeletal: Negative for myalgias. Neurological: Positive for headaches. Objective Physical Exam Constitutional: He is well-developed, well-nourished, and in no distress. HENT: Head: Normocephalic and atraumatic. Right Ear: Tympanic membrane, external ear and ear canal normal. Left Ear: Tympanic membrane, external ear and ear canal normal. Nose: Mucosal edema and rhinorrhea present. Right sinus exhibits no maxillary sinus tenderness and no frontal sinus tenderness. Left sinus exhibits frontal sinus tenderness. Left sinus exhibits no maxillary sinus tenderness. Mouth/Throat: Uvula is midline and mucous membranes are normal. No oropharyngeal exudate, posterior oropharyngeal edema, posterior oropharyngeal erythema or tonsillar abscesses. Cardiovascular: Normal rate, regular rhythm and normal heart sounds. Pulmonary/Chest: Effort normal and breath sounds normal. He has no decreased breath sounds. He has no wheezes. He has no rhonchi. He has no rales. Lymphadenopathy: Head (right side): No submental, no submandibular, no tonsillar and no preauricular adenopathy present. Head (left side): No submental, no submandibular, no tonsillar and no preauricular adenopathy present. He has no cervical adenopathy. Right cervical: No superficial cervical adenopathy present. Left cervical: No superficial cervical adenopathy present. Nursing note and vitals reviewed. ASSESSMENT/PLAN: 1. Nasal congestion - ICD9: 478.19, ICD10: R09.81 (primary diagnosis) Flonase 2 sprays in each nostril once a day Tylenol (generic acetaminophen) 500 mg-2 tabs every 8 hrs. as needed for fever and aches Ibuprofen 600 mg (3-200mg tablets) every 6 hours -Sudafed (generic is fine), behind the counter, 2x30 mg tabs twice daily as needed for congestion 2. Sinus pain - ICD9: 478.19, ICD10: J34.89 Possible sinusitis due to unilateral sinus pain Start augmentin 3. Suspected COVID-19 virus infection - ICD9: V01.79, ICD10: Z20.822 Home isolation Testing ordered Comfort measures discussed When to seek higher level of care Notified in 24-48 hours with results, available on [employer] - 2019 CORONAVIRUS - Meets symptom-based criteria for testing and is low risk. - Patient scheduled for testing at the time of visit. - Instructed to isolate pending test results - Discussed symptom monitoring and supportive care - Red flag symptoms requiring follow up discussed This patient encounter involved the screening or treatment of novel coronavirus infection (COVID-19). Diagnosis and treatment plan were discussed and questions were answered to the patient's satisfaction. Pt acknowledged understanding of concepts and follow up plan. Specific signs and symptoms that would indicate the need for higher level of care were discus (more content not included)... Normal [facility] Coronavirus 2019on 1 SARS-CoV-2 (COVID-19) RNA ABILIO+probe Ql (Unsp spec) UPPER RESPIRATORY TRACT SWAB Normal [facility] Comment on above: Performed By: #### C OVID #### [facility] [address] [place] [address] SARS-CoV-2 (COVID-19) RNA ABILIO+probe Ql (Unsp spec) Negative Normal Negative for COVID19 (SARS CoV2) by PCR. [facility] Comment on above: Result Comment: This test was developed and its performance characteristics determined by [facility] [place]. This test has been authorized by FDA under an Emergency Use Authorization (EUA). This test has been validated in accordance with the FDA's Guidance Document Policy for Diagnostics Testing in Laboratories Certified to Perform High Complexity Testing under CLIA prior to Emergency use Authorization for Coronavirus Disease 2019 during the Public Health Emergency issued on June 23, 2019. Performed By: #### C OVID #### [facility] [address] [id number] Vital Signs Date Time Vital Sign Value Performing Clinician Yony villasenor 02-16-2024 10:23-0400 Heart rate 86 /min [employer] Phone: [employer] 02-16-2024 10:23-0400 SaO2% (BldA) [Mass fraction] 97 % [employer] Phone: [employer] 02-16-2024 10:20-0400 Diastolic blood pressure 90 mm[Hg] [employer] Phone: [employer] 02-16-2024 10:20-0400 Respiratory rate 16 /min [employer] Phone: [employer] 02-16-2024 10:20-0400 Systolic blood pressure 127 mm[Hg] [employer] Phone: [employer] 02-16-2024 10:10-0400 Body temperature 97.81 [degF] [employer] Phone: [employer] 12-11-2022 13:22-0400 Diastolic Blood Pressure Non-Invasive [address] FARIDA CORDERO MD [facility] 12-11-2022 13:22-0400 Heart rate 71 /min DR FARIDA CORDERO MD [facility] 08-19-2023 13:22-0400 Respiratory rate 14 /min DR FARIDA CORDERO MD [facility] 12-11-2022 13:22-0400 Systolic Blood Pressure Non-Invasive [address] FARIDA CORDERO MD [facility] 12-11-2022 13:00-0400 Heart rate 66 /min DR FARIDA CORDERO MD [facility] 12-11-2022 12:30-0400 Heart rate 85 /min DR FARIDA CORDERO MD [facility] 12-11-2022 12:30-0400 Respiratory rate 17 /min DR FARIDA CORDERO MD [facility] 12-11-2022 11:15-0400 Diastolic Blood Pressure Non-Invasive [address] FARIDA CORDERO MD [facility] 12-11-2022 11:15-0400 Systolic Blood Pressure Non-Invasive [address] FARIDA CORDERO MD [facility] 12-11-2022 11:00-0400 Diastolic Blood Pressure Non-Invasive [address] FARIDA CORDERO MD [facility] 12-11-2022 11:00-0400 Systolic Blood Pressure Non-Invasive [address] FARIDA CORDERO MD [facility] 12-11-2022 10:42-0400 Body temperature 97.7 [degF] DR FARIDA CORDERO MD [facility] Encounters Encounter Date Encounter Type Care Provider Facility Start: 02-16-2024 End: 02-16-2024 ambulatory ALBERTO [facility] Start: 02-16-2024 End: 02-16-2024 Subsequent hospital visit by physician Alberto Alvarez DO Work Phone: [facility] Comment on above: Deviated nasal septu m; Chronic maxillary sinusitis; Chronic ethmoidal sinusitis; Chronic rhinitis; Hypertrophy of nasal turbinates Start: 02-09-2024 End: 02-09-2024 ambulatory SAVANA JULY [facility] Start: 12-19-2023 End: 12-19-2023 Telephone encounter Savana Louie DO Work Phone: [facility] Comment on above: No Show (Pt no showe d for appt on 12/19/23) Start: 09-29-2023 End: 09-29-2023 ambulatory ALBERTO KIM [facility] Start: 09-29-2023 End: 09-29-2023 Subsequent hospital visit by physician Alberto Alvarez DO Work Phone: [facility] Comment on above: Nasal congestion Start: 08-26-2023 End: 11-25-2023 Transcribe Orders Alberto Rasmussen Kim Salas [facility] Work Phone: [facility] Scheduling Comment on above: Nasal congestion (Pr imary Dx) Start: 05-16-2023 End: 05-16-2023 ambulatory SAVANA LOUIE Facility:[facility] Start: 05-16-2023 Encounter for genera l adult medical examination without abnormal findings SAVANA LOUIE [facility] Start: 12-11-2022 End: 12-11-2022 Emergency department patient visit DR FARIDA CORDERO MD [facility] Plan of Treatment Date Care Activity Detail Author Start: 2057 RSV Immunization for Adults (1 - 1-dose 75+ series) RSV Immunization for Adults (1 - 1-dose 75+ series) [facility] Start: 2042 RSV Immunization age d 60 or older (1 - 1-dose 60+ series) RSV Immunization aged 60 or older (1 - 1-dose 60+ series) [facility] Start: 2032 Zoster Vaccines (1 of 2) Zoster Vacc veronica (1 of 2) [facility] Start: 05-16-2024 Covid-19 Vaccine ( season) Covid-19 Vaccine ( season) [facility] Comment on above: Postponed from 12/24 (Declined at this time) Start: 05-16-2024 Hepatitis B Vaccine (1 of 3 - 19+ 3-dose series) Hepatitis B Vaccine (1 of 3 - 19+ 3-dose series) [facility] Comment on above: Postponed from 03/06 (Declined at this time) Start: 05-16-2024 Urine microalbumin profile DTaP,Tdap,Td Vaccine (1 - Tdap) [facility] Comment on above: Postponed from 03/06 (Declined at this time) Start: 02-16-2024 End: 02-16-2024 Nasal/sinus endoscopy w/maxillary antrostomy NASAL SINUS ENDOSCOPY WITH MAXILLARY ANTROSTOMY Deviated nasal septum Chronic maxillary sinusitis Chronic ethmoidal sinusitis Chronic rhinitis Hypertrophy of nasal turbinates 02/16/2024 7:41 AM T [facility] Operating Room Start: 02-16-2024 End: 02-16-2024 Nasal/sinus ndsc w/total ethoidectomy NASAL SINUS ENDOSCOPY WITH ETHMOIDECTOMY TOTAL ANTERIOR AND POSTERIOR Deviated nasal septum Chronic maxillary sinusitis Chronic ethmoidal sinusitis Chronic rhinitis Hypertrophy of nasal turbinates 02/16/2024 7:41 AM T [facility] Operating Room Start: 02-16-2024 End: 02-16-2024 REPAIR OF NASAL VALVE COLLAPSE WITH SUBCUTANEOUS/SUBMUCOSAL LATERAL WALL IMPLANT(S) REPAIR OF NASAL VALVE COLLAPSE WITH SUBCUTANEOUS/SUBMUCOSAL LATERAL WALL IMPLANT(S) Deviated nasal septum Chronic maxillary sinusitis Chronic ethmoidal sinusitis Chronic rhinitis Hypertrophy of nasal turbinates 02/16/2024 7:41 AM EDT [facility] Operating Room Start: 02-16-2024 End: 02-16-2024 Septoplasty/submucous resecj w/wo cartilage grf SEPTOPLASTY OR SUBMUCOUS RESECTION Deviated nasal septum Chronic maxillary sinusitis Chronic ethmoidal sinusitis Chronic rhinitis Hypertrophy of nasal turbinates 02/16/2024 7:41 AM T [facility] Operating Room Start: 02-16-2024 End: 02-16-2024 Strtctc cptr asstd px extradural cranial STEREOTACTIC CRANIOTOMY CRANIAL EXTRADURAL Deviated nasal septum Chronic maxillary sinusitis Chronic ethmoidal sinusitis Chronic rhinitis Hypertrophy of nasal turbinates 02/16/2024 7:41 AM EDT [facility] Operating Room Start: 02-16-2024 End: 02-16-2024 Submucous rescj inferior turbinate prtl/compl SUBMUCOUS RESECTION INFERIOR TURBINATE Deviated nasal septum Chronic maxillary sinusitis Chronic ethmoidal sinusitis Chronic rhinitis Hypertrophy of nasal turbinates 02/16/2024 7:41 AM EDT [facility] Operating Room Start: 12-25-2023 COVID-19 Vaccine ( season) COVID-19 Vaccine ( season) [facility] Start: 12-25-2023 Influenza vaccination [facility] Start: 12-24-2022 COVID-19 Vaccine ( season) COVID-19 Vaccine ( season) [facility] Start: 2017 Lipid panel [facility] Scre[facility] Start: 2001 DTaP/Tdap/Td Vaccine s (1 - Tdap) DTaP/Tdap/Td Vaccines (1 - Tdap) [facility] Start: 2001 Hepatitis B Vaccines (1 of 3 - 19+ 3-dose series) Hepatitis B Vaccines (1 of 3 - 19+ 3-dose series) [facility] Start: 2000 Depression Screening Depression Scre ening [facility] Start: 2000 Diabetes mellitus screening Diabetes Screening [facility] Start: 2000 Hepatitis C screening Hepatitis C Sc reening [facility] Start: 2000 HIV screening [facility] Start: 1995 Varicella vaccination Varicell a Vaccines (1 of 2 - 13+ 2-dose series) [facility] Start: 1994 Depression Screening Depression Scre ening [facility] Start: 1983 MMR Vaccines (1 of 1 - Standard series) MMR Vaccines (1 of 1 - Standard series) [facility] Start: 1982 HIV screening HIV Screening [facility] Start: 1982 Lipid panel Lipid Panel [facility] End: 09-29-2023 CT Maxillofacial region WO and W contrast IV [facility] Work Phone: Comment on above: Once for 1 Occurrenc es starting 09/29/2023 until 09/29/2023 OUTSIDE PROCEDURE SCAN OUTSIDE P ROCEDURE SCAN Procedures Ordered: 09/28/2023 [facility] Comment on above: Ordered: 09/28/2023 Tissue exam [facility] Work Phone: Comment on above: Release Upon Orderin g for 1 Occurrences starting 02/16/2024 Payers Date Payer Category Payer Medicaid HMO [employer] [id number] 2023 Medicaid [id number] 2023 Medicaid [id number] Social History Date Type Detail Facility Tobacco smoking stat us AKIS Tobacco smoking consumption unknown [facility] Start: 1982 Sex Assigned At Not on file [facility] Start: 05-16-2023 End: 02-16-2024 Gender identity Not on file [facility] Start: 05-16-2023 End: 02-16-2024 Tobacco smoking status NHIS Ex-smoker [facility] History of tobacco use Current smoker [facility] History of tobacco use Cigarette Smoker C [facility] Start: 05-16-2023 End: 02-16-2024 Tobacco use and exposure User of smokeless tobacco [facility] History of tobacco use Chews Tobacco [facility] Start: 05-16-2023 End: 02-16-2024 Alcoholic beverage intake [facility] Start: 05-16-2023 End: 02-16-2024 History of Social function [facility] Adult Depression Screening Assessment 3 [facility] Start: 02-16-2024 Alcohol Comment [facility] Start: 08-26-2023 Sex Male (finding) Alvaro landeros Medical Equipment Procedure Code Equipment Code Equipment Origin al Text Equipment Identifier Dates Implant Nasal Pr opel Reg 23mm - [id number] Start: 02-16-2024 Implant Nasal Pr opel Mini 16mm - [id number], [id number] FDA Start: 02-16-2024 Implant Nasal La radha 20mm - [id number] FDA Start: 02-16-2024 Functional Status Date Assessment Result Facility 12-11-2022 Functional Status Independent [facility] 12-11-2022 Functional Status Standard Safet y ID band on, Call device within reach, Bed in low position, Wheels locked, Safety level maintained [facility] Mental Status Date Assessment Result Facility 12-11-2022 Mental Status Orientation Oriented x 4 [facility] 12-11-[address] [facility] Clinical Notes 06-28-2020 to 02-16-2024 Perioperative Nursing Note - Maryjo So RN - 02/16/2024 10:15 AM EDTPerioperative Nursing Note - Maryjo So RN - 02/16/2024 9:53 AM EDTDischarge InstructionsAttachments Note Date & Type Note Facility 02-16-2024 Note Patient: Heraclio ansari Procedure Summary Date: 02/16/24 Room / Location: [address] Operating Room Anesthesia Start: 736 Anesthesia Stop: 953 Procedures: SEPTOPLASTY; BILATERAL INFERIOR TURBINATE REDUCTION; BILATERAL LATERA IMPLANT; BILATERAL MAXILLARY ANTROSTOMY; BILATERAL TOTAL ETHMOIDECTOMY; STEREOTACTIC COMPUTER-ASSISTED (NAVIGATIONAL) PROCEDURE (Nose) SUBMUCOUS RESECTION INFERIOR TURBINATE (Bilateral: Nose) REPAIR OF NASAL VALVE COLLAPSE WITH SUBCUTANEOUS/SUBMUCOSAL LATERAL WALL IMPLANT(S) (Bilateral: Nose) NASAL SINUS ENDOSCOPY WITH MAXILLARY ANTROSTOMY (Bilateral: Nose) NASAL SINUS ENDOSCOPY WITH ETHMOIDECTOMY TOTAL ANTERIOR AND POSTERIOR (Bilateral: Nose) STEREOTACTIC CRANIOTOMY CRANIAL EXTRADURAL (Head) Diagnosis: Deviated nasal septum Chronic maxillary sinusitis Chronic ethmoidal sinusitis Chronic rhinitis Hypertrophy of nasal turbinates Surgeons: Alberto Alvarez DO Responsible Provider: No Anesthesiologist - MD Hakeem Anesthesia Type: general ASA Status: 2 Anesthesia Type: general Vitals Value Taken Time BP 127/90 02/16/24 1021 Temp 36.6 ?C (97.8 ?F) 02/16/24 0953 Pulse 86 02/16/24 1021 Resp 16 02/16/24 1000 SpO2 97 % 02/16/24 1021 Vitals shown include unfiled device data. Anesthesia Post Evaluation Patient location during evaluation: PACU Patient participation: complete - patient participated Level of consciousness: awake and alert Pain management: satisfactory to patient Airway patency: patent Dental Injury: no Cardiovascular status: acceptable, blood pressure returned to baseline and hemodynamically stable Respiratory status: acceptable and spontaneous ventilation Hydration status: euvolemic Nausea/Vomiting: controlled No notable events documented. Patient can be discharged once all PACU criteria has been met. [facility] 02-16-2024 Note Patient: Heraclio Ferreira on Procedure Summary Date: 02/16/24 Room / Location: [address] Operating Room Anesthesia Start: 0737 Anesthesia Stop: 953 Procedures: SEPTOPLASTY; BILATERAL INFERIOR TURBINATE REDUCTION; BILATERAL LATERA IMPLANT; BILATERAL MAXILLARY ANTROSTOMY; BILATERAL TOTAL ETHMOIDECTOMY; STEREOTACTIC COMPUTER-ASSISTED (NAVIGATIONAL) PROCEDURE (Nose) SUBMUCOUS RESECTION INFERIOR TURBINATE (Bilateral: Nose) REPAIR OF NASAL VALVE COLLAPSE WITH SUBCUTANEOUS/SUBMUCOSAL LATERAL WALL IMPLANT(S) (Bilateral: Nose) NASAL SINUS ENDOSCOPY WITH MAXILLARY ANTROSTOMY (Bilateral: Nose) NASAL SINUS ENDOSCOPY WITH ETHMOIDECTOMY TOTAL ANTERIOR AND POSTERIOR (Bilateral: Nose) STEREOTACTIC CRANIOTOMY CRANIAL EXTRADURAL (Head) Diagnosis: Deviated nasal septum Chronic maxillary sinusitis Chronic ethmoidal sinusitis Chronic rhinitis Hypertrophy of nasal turbinates Surgeons: Alberto Alvarze DO Responsible Provider: No Anesthesiologist - Luan/MD Michaela Anesthesia Type: general ASA Status: 2 Anesthesia Type: general Vitals Value Taken Time BP 127/90 02/16/24 1021 Temp 36.6 ?C (97.8 ?F) 02/16/24 0953 Pulse 86 02/16/24 1021 Resp 16 02/16/24 1000 SpO2 97 % 02/16/24 1021 Vitals shown include unfiled device data. Anesthesia Post Evaluation Patient location during evaluation: PACU Patient participation: complete - patient participated Level of consciousness: awake and alert Pain management: satisfactory to patient Multimodal analgesia pain management approach Airway patency: patent Two or more strategies used to mitigate risk of obstructive sleep apnea Cardiovascular status: acceptable and hemodynamically stable Respiratory status: acceptable Hydration status: acceptable No notable events documented. MIPS #[id number] PONV Patient received an inhalational anesthetic (4554F) Patient does not exhibit three or more risk factors for PONV (X0430)) MIPS # [phone] Perioperative Temperature Management Anesthesia time was 60 minutes or longer (4255F) Anesthesai administered was General (inhalational or TIVA) or Neuraxial block (X0424) At least one body temperature greater than 95.8F/35.5C achieved within the 30 mins immediately prior to or the 15 minutes immediately following anesthesia end time (G9771) MIPS #477 Multimodal Pain Management Not emergent case Patient was administered multimodal pain management (two or more drugs and/or interventions excluding systemic opioids) in the periopeartive period occurring at some time between 6 hours prior to anesthesia start time until discharged from PACU (G2148) MIPS #404 Anesthesiology Smoking Abstinence The patient is not a current smoker (e.g. cigarette, cigar, pipe, e-cigarette/vaping/marijuana) If no stop here (XX404) I completed my handoff to the receiving clinician during which we: 1. Identified the patient 2. Identified the responsible provider 3. Reviewed the pertinent medical history 4. Discussed the surgical course 5. Reviewed intra-op anesthesia management and issues during anesthesia 6. Set expectations for post-procedure period 7. Allowed opportunity for questions and acknowledgement of understanding. [facility] 02-16-2024 Miscellaneous Notes Pt awake and taking with DR. Alvarez and his who is in the room, pt states he is ready to go, declines offer of something to drink, rates pain at a 4 and states this is tolerable to him Phase II indicated, pt awake and talking, VS stable, pt dressed and ambulated to wheelchair without difficulty, home going instructions reviewed with patient, verbal understanding demonstrated and opportunity given for questions Pt received from OR via cart, spont. Resp. With PURCHASING SUPERVISOR in attendance. Placed on monitor. Monitor alarms on in PACU Pt awake and talking OPERATIVE NOTE Patient Name: Heraclio Keys DATE OF PROCEDURE: 02/16/2024 SURGEON: Alberto Alvarez DO PREOPERATIVE DIAGNOSES: Pre-op Diagnosis * Deviated nasal septum [J34.2] * Chronic maxillary sinusitis [J32.0] * Chronic ethmoidal sinusitis [J32.2] * Chronic rhinitis [J31.0] * Hypertrophy of nasal turbinates [J34.3] POSTOPERATIVE DIAGNOSES: same PROCEDURE: Procedure(s): SEPTOPLASTY; BILATERAL INFERIOR TURBINATE REDUCTION; BILATERAL LATERA IMPLANT; BILATERAL MAXILLARY ANTROSTOMY; BILATERAL TOTAL ETHMOIDECTOMY; STEREOTACTIC COMPUTER-ASSISTED (NAVIGATIONAL) PROCEDURE SUBMUCOUS RESECTION INFERIOR TURBINATE REPAIR OF NASAL VALVE COLLAPSE WITH SUBCUTANEOUS/SUBMUCOSAL LATERAL WALL IMPLANT(S) NASAL SINUS ENDOSCOPY WITH MAXILLARY ANTROSTOMY NASAL SINUS ENDOSCOPY WITH ETHMOIDECTOMY TOTAL ANTERIOR AND POSTERIOR STEREOTACTIC CRANIOTOMY CRANIAL EXTRADURAL ENDOSCOPIC EXCISION LEBRON BULLOSA LEFT MIDDLE TURBINATE ANESTHESIA: General COMPLICATIONS: NONE ESTIMATED BLOOD LOSS: Minimal GROSS FINDINGS: Nasal endoscopy reveals a significant septal deviation to the right with spurring over the maxillary crest to the left. There is bilateral inferior turbinate enlargement, right-sided more than left. The left middle turbinate was bulbous due to an underlying lebron bullosa. There is a polyp filling the left middle meatus. There is marked amount of edema circumferentially and obstructing the left maxillary sinus. Mucosal edema extended throughout the ethmoid air cells on the left anteriorly more so. The left maxillary sinus was completely filled with yellow purulence. The right middle turbinate was atrophic. There is moderate edema within the mucosa of the right middle meatus. There were a couple moderately sized polyps located within the posterior right ethmoids. DESCRIPTION OF PROCEDURE: Anterior rhinoscopy was performed. The nasal mucosa was locally infiltrated using 1% lidocaine with 1: 100,000 epinephrine into the anterior aspect of the left and right anterior septal mucosa regions. Good blanching of the mucosa was evident as the injection was provided in a submucosal plane. 4% cocaine packs were then applied to cotton plexus and placed within the left right nasal cavities. Time was allowed for vasoconstriction. During this time the facial area was prepped with a Betadine solution and the patient draped in the usual sterile fashion. Note that the endoscopic portion of the surgery was performed using one 0 degree rigid endoscope with its image projected onto a monitor for viewing by all operating room personnel. Sinus dissection was performed using the CellPhireebrider with a 4.0 mm aggressive cutting bur placed in an oscillation mode. The left lebron bullosa was then addressed, which caused a bulbous affect compromising the middle meatus. The debrider was positioned within the middle meatus with the serrated teeth applied against the lateral aspect of the middle turbinate and lamellar bone. The lateral aspect was carefully shaved to remove the lamellar bone and lateral mucosa taking care to ensure stability of the lebron bone superiorly. The mucosa and lateral lamella were shaved until the entire underlying air cell pocket was exposed, especially by involving the middle turbinate. The medial middle turbinate with its attachment superiorly remained intact. The left maxillary sinus was then addressed. 1% lidocaine with 1: 100,000 epinephrine was infiltrated into the uncinate process and middle turbinate followed by placement of a 4% cocaine packed within the meatus itself. The uncinate process was identified. A side-biting forceps was used to create a posterior to anterior infundibulotomy incision in the midportion of the uncinate process. The shaver device was used to debride and remove the superior and inferior halves of the uncinate process. The natural ostia of the maxillary sinus was identified in this location confirmed with a sinus seeker. Any edematous mucosa was shaved free from its inferior and posterior aspects using the debrider. The left ethmoids were then dissected. The bulla ethmoidalis was entered using the microdebrider shaver. It was entered within its inferior medial aspect. An anterior ethmoidectomy was performed. The basal lamella was then dissected as the posterior ethmoid air cells were then exposed and ventilated. Dissection throughout was completed by removing any thickened and edematous mucosa as well as the bony septations. Dissection was carried posteriorly to a depth of 7 cm as measured from the nasal vestibule. Dissection was then carried anteriorly along the roof of the ethmoids using a curette, up-biting forceps, and the shaver device. All bony septations were removed to create a well ventilated ethmoid cavity. The right maxillary sinus was then addressed. 1% lidocaine with 1: 100,000 epinephrine was infiltrated into the uncinate process and middle turbinate followed by placement of a 4% cocaine packed within the meatus itself. The uncinate process was identified. A side-biting forceps was used to create a posterior to anterior infundibulotomy incision in the midportion of the uncinate process. The shaver device was used to debride and remove the superior and inferior halves of the uncinate process. The natural ostia of the maxillary sinus was identified in this location confirmed with a sinus seeker. Any edematous mucosa was shaved free from its inferior and posterior aspects using the debrider. The right ethmoids were then dissected. The bulla ethmoidalis was entered using the microdebrider shaver. It was entered within its inferior medial aspect. An anterior ethmoidectomy was performed. The basal lamella was then dissected as the posterior ethmoid air cells were then exposed and ventilated. Dissection throughout was completed by removing any thickened and edematous mucosa as well as the bony septations. Dissection was carried posteriorly to a depth of 7 cm as measured from the nasal vestibule. Dissection was then carried anteriorly along the roof of the ethmoids using a curette, up-biting forceps, and the shaver device. All bony septations were removed to create a well ventilated ethmoid cavity. A #15 scalpel it was taken. A left caudal columellar incision was made through the mucocutaneous junction down to the quadrangular plate of the cartilage. A freer elevator was taken in the left mucoperichondriun and mucoperiosteum were then elevated from the left nasal septum. Complete flap elevation was obtained on the left side in atraumatic fashion. A scalpel blade was then taken and an incision made anterior to the deviated segments through the quadrangular plate of the cartilage. Performing through the transcartilaginous incision, the opposing right mucoperichondrium and periosteum were then elevated from the right nasal septum. This was also done using a freer elevator in atraumatic fashion being sure to avoid any mucosal tear. At this point, the nasal septum was isolated within mucosal flaps. Metzenbaum scissors were taken and an incision was made superior and inferior to the deviated segment. This segment was then removed using forceps. Spurring was evident for the maxillary crest which was removed using an osteotome. The spurred segment was also removed using forceps. Anterior rhinoscopy now showed the septum to light in the midline plane. The septoplasty incision was closed with multiple simple sutures of 4-0 chromic. Left inferior turbinate reduction was then performed. 1% lidocaine with 1: 100,000 epinephrine was infiltrated into the anterior aspect of the left inferior turbinate. A #15 scalpel was taken. A stab incision was made into the anterior aspect of the inferior turbinate. A freer elevator was used to elevate the mucosa from the underlying chonchal bone. Elevation was carried along the length of the inferior turbinate. A submucous resection was performed using the [employer] shaver using a turbinate wand placed in an oscillation mode. The wand was tunneled submucosally on the along the length of the left inferior turbinate. A submucous resection was performed as the hypertrophic submucosal tissue was carefully resected as the wand was slowly withdrawn in an anterior direction. The left inferior turbinate was then outfractured laterally using a long bladed nasal speculum. The right inferior turbinate was then addressed in similar fashion. 1% lidocaine with 1: 100,000 epinephrine was infiltrated into the anterior aspect of the inferior turbinate. A stab incision was made into its anterior aspect. A freer elevator was taken and the mucosal flap was elevated along the length of the turbinate. The turbinate wand was tunneled submucosally along its length. A submucous resection was again performed as wand was slowly withdrawn anterior to resect hypertrophic redundant submucosal soft tissue. The right inferior turbinate was also outfractured laterally using a long bladed nasal speculum. Each nasal cavity was irrigated. Hemostasis was assured. Nasopore was positioned within each ethmoid cavity for hemostasis and maintain medialization of each middle turbinate. Bilateral Judge splints were placed and secured with a transseptal suture of 3-0 nylon. A nasal sling was applied and secured with silk tape. The patient tolerated the septoplasty and turbinate reduction well without incident. documented in this encounter [facility] 02-16-2024 Note Formatting of this n ote might be different from the original. Pt awake and taking with DR. Alvarez and his who is in the room, pt states he is ready to go, declines offer of something to drink, rates pain at a 4 and states this is tolerable to him Phase II indicated, pt awake and talking, VS stable, pt dressed and ambulated to wheelchair without difficulty, home going instructions reviewed with patient, verbal understanding demonstrated and opportunity given for questions [facility] 02-16-2024 Note Formatting of this n ote might be different from the original. Pt awake and taking with DR. Alvarez and his who is in the room, pt states he is ready to go, declines offer of something to drink, rates pain at a 4 and states this is tolerable to him Phase II indicated, pt awake and talking, VS stable, pt dressed and ambulated to wheelchair without difficulty, home going instructions reviewed with patient, verbal understanding demonstrated and opportunity given for questions [facility] 02-16-2024 Note Formatting of this n ote might be different from the original. Pt received from OR via cart, spont. Resp. With PURCHASING SUPERVISOR in attendance. Placed on monitor. Monitor alarms on in PACU Pt awake and talking [facility] 02-16-2024 Note Formatting of this n ote might be different from the original. Pt received from OR via cart, spont. Resp. With PURCHASING SUPERVISOR in attendance. Placed on monitor. Monitor alarms on in PACU Pt awake and talking [facility] 02-16-2024 Note Airway Date/Time: 02/16/2024 7:46 AM Urgency: scheduled Airway not difficult General Information and Staff Patient location during procedure: Procedural Anesthesiologist: No Anesthesiologist - Sbh/Msc, MD Resident/PURCHASING SUPERVISOR: Gema Head CRNA Performed: PURCHASING SUPERVISOR Indications and Patient Condition Indications for airway management: anesthesia Sedation level: Asleep Preoxygenated: yes Mask difficulty assessment: 1 - vent by mask Final Airway Details Final airway type: endotracheal airway Successful airway: ETT and oral SHE Cuffed: yes Successful intubation technique: direct laryngoscopy Facilitating devices/methods: intubating stylet Blade: Samanta Blade size: #4 ETT size (mm): 7.0 Cormack-Lehane Classification: grade I - full view of glottis Placement verified by: capnometry Measured from: lips ETT to lips (cm): 21 Number of attempts at approach: 1 Number of other approaches attempted: 0 [facility] 02-16-2024 Note Formatting of this n ote might be different from the original. OPERATIVE NOTE Patient Name: Heraclio Keys DATE OF PROCEDURE: 02/16/2024 SURGEON: Alberto Alvarez DO PREOPERATIVE DIAGNOSES: Pre-op Diagnosis * Deviated nasal septum [J34.2] * Chronic maxillary sinusitis [J32.0] * Chronic ethmoidal sinusitis [J32.2] * Chronic rhinitis [J31.0] * Hypertrophy of nasal turbinates [J34.3] POSTOPERATIVE DIAGNOSES: same PROCEDURE: Procedure(s): SEPTOPLASTY; BILATERAL INFERIOR TURBINATE REDUCTION; BILATERAL LATERA IMPLANT; BILATERAL MAXILLARY ANTROSTOMY; BILATERAL TOTAL ETHMOIDECTOMY; STEREOTACTIC COMPUTER-ASSISTED (NAVIGATIONAL) PROCEDURE SUBMUCOUS RESECTION INFERIOR TURBINATE REPAIR OF NASAL VALVE COLLAPSE WITH SUBCUTANEOUS/SUBMUCOSAL LATERAL WALL IMPLANT(S) NASAL SINUS ENDOSCOPY WITH MAXILLARY ANTROSTOMY NASAL SINUS ENDOSCOPY WITH ETHMOIDECTOMY TOTAL ANTERIOR AND POSTERIOR STEREOTACTIC CRANIOTOMY CRANIAL EXTRADURAL ENDOSCOPIC EXCISION LEBRON BULLOSA LEFT MIDDLE TURBINATE ANESTHESIA: General COMPLICATIONS: NONE ESTIMATED BLOOD LOSS: Minimal GROSS FINDINGS: Nasal endoscopy reveals a significant septal deviation to the right with spurring over the maxillary crest to the left. There is bilateral inferior turbinate enlargement, right-sided more than left. The left middle turbinate was bulbous due to an underlying lebron bullosa. There is a polyp filling the left middle meatus. There is marked amount of edema circumferentially and obstructing the left maxillary sinus. Mucosal edema extended throughout the ethmoid air cells on the left anteriorly more so. The left maxillary sinus was completely filled with yellow purulence. The right middle turbinate was atrophic. There is moderate edema within the mucosa of the right middle meatus. There were a couple moderately sized polyps located within the posterior right ethmoids. DESCRIPTION OF PROCEDURE: Anterior rhinoscopy was performed. The nasal mucosa was locally infiltrated using 1% lidocaine with 1: 100,000 epinephrine into the anterior aspect of the left and right anterior septal mucosa regions. Good blanching of the mucosa was evident as the injection was provided in a submucosal plane. 4% cocaine packs were then applied to cotton plexus and placed within the left right nasal cavities. Time was allowed for vasoconstriction. During this time the facial area was prepped with a Betadine solution and the patient draped in the usual sterile fashion. Note that the endoscopic portion of the surgery was performed using one 0 degree rigid endoscope with its image projected onto a monitor for viewing by all operating room personnel. Sinus dissection was performed using the [employer] microdebrider with a 4.0 mm aggressive cutting bur placed in an oscillation mode. The left lebron bullosa was then addressed, which caused a bulbous affect compromising the middle meatus. The debrider was positioned within the middle meatus with the serrated teeth applied against the lateral aspect of the middle turbinate and lamellar bone. The lateral aspect was carefully shaved to remove the lamellar bone and lateral mucosa taking care to ensure stability of the lebron bone superiorly. The mucosa and lateral lamella were shaved until the entire underlying air cell pocket was exposed, especially by involving the middle turbinate. The medial middle turbinate with its attachment superiorly remained intact. The left maxillary sinus was then addressed. 1% lidocaine with 1: 100,000 epinephrine was infiltrated into the uncinate process and middle turbinate followed by placement of a 4% cocaine packed within the meatus itself. The uncinate process was identified. A side-biting forceps was used to create a posterior to anterior infundibulotomy incision in the midportion of the uncinate process. The shaver device was used to debride and remove the superior and inferior halves of the uncinate process. The natural ostia of the maxillary sinus was identified in this location confirmed with a sinus seeker. Any edematous mucosa was shaved free from its inferior and posterior aspects using the debrider. The left ethmoids were then dissected. The bulla ethmoidalis was entered using the microdebrider shaver. It was entered within its inferior medial aspect. An anterior ethmoidectomy was performed. The basal lamella was then dissected as the posterior ethmoid air cells were then exposed and ventilated. Dissection throughout was completed by removing any thickened and edematous mucosa as well as the bony septations. Dissection was carried posteriorly to a depth of 7 cm as measured from the nasal vestibule. Dissection was then carried anteriorly along the roof of the ethmoids using a curette, up-biting forceps, and the shaver device. All bony septations were removed to create a well ventilated ethmoid cavity. The right maxillary sinus was then addressed. 1% lidocaine with 1: 100,000 epinephrine was infiltrated into the uncinate process and middle turbinate followed by placement of a 4% cocaine packed within the meatus itself. The uncinate process was identified. A side-biting forceps was used to create a posterior to anterior infundibulotomy incision in the midportion of the uncinate process. The shaver device was used to debride and remove the superior and inferior halves of the uncinate process. The natural ostia of the maxillary sinus was identified in this location confirmed with a sinus seeker. Any edematous mucosa was shaved free from its inferior and posterior aspects using the debrider. The right ethmoids were then dissected. The bulla ethmoidalis was entered using the microdebrider shaver. It was entered within its inferior medial aspect. An anterior ethmoidectomy was performed. The basal lamella was then dissected as the posterior ethmoid air cells were then exposed and ventilated. Dissection throughout was completed by removing any thickened and edematous mucosa as well as the bony septations. Dissection was carried posteriorly to a depth of 7 cm as measured from the nasal vestibule. Dissection was then carried anteriorly along the roof of the ethmoids using a curette, up-biting forceps, and the shaver device. All bony septations were removed to create a well ventilated ethmoid cavity. A #15 scalpel it was taken. A left caudal columellar incision was made through the mucocutaneous junction down to the quadrangular plate of the cartilage. A freer elevator was taken in the left mucoperichondriun and mucoperiosteum were then elevated from the left nasal septum. Complete flap elevation was obtained on the left side in atraumatic fashion. A scalpel blade was then taken and an incision made anterior to the deviated segments through the quadrangular plate of the cartilage. Performing through the transcartilaginous incision, the opposing right mucoperichondrium and periosteum were then elevated from the right nasal septum. This was also done using a freer elevator in atraumatic fashion being sure to avoid any mucosal tear. At this point, the nasal septum was isolated within mucosal flaps. Metzenbaum scissors were taken and an incision was made superior and inferior to the deviated segment. This segment was then removed using forceps. Spurring was evident for the maxillary crest which was removed using an osteotome. The spurred segment was also removed using forceps. Anterior rhinoscopy now showed the septum to light in the midline plane. The septoplasty incision was closed with multiple simple sutures of 4-0 chromic. Left inferior turbinate reduction was then performed. 1% lidocaine with 1: 100,000 epinephrine was infiltrated into the anterior aspect of the left inferior turbinate. A #15 scalpel was taken. A stab incision was made into the anterior aspect of the inferior turbinate. A freer elevator was used to elevate the mucosa from the underlying chonchal bone. Elevation was carried along the length of the inferior turbinate. A submucous resection was performed using the [employer] shaver using a turbinate wand placed in an oscillation mode. The wand was tunneled submucosally on the along the length of the left inferior turbinate. A submucous resection was performed as the hypertrophic submucosal tissue was carefully resected as the wand was slowly withdrawn in an anterior direction. The left inferior turbinate was then outfractured laterally using a long bladed nasal speculum. The right inferior turbinate was then addressed in similar fashion. 1% lidocaine with 1: 100,000 epinephrine was infiltrated into the anterior aspect of the inferior turbinate. A stab incision was made into its anterior aspect. A freer elevator was taken and the mucosal flap was elevated along the length of the turbinate. The turbinate wand was tunneled submucosally along its length. A submucous resection was again performed as wand was slowly withdrawn anterior to resect hypertrophic redundant submucosal soft tissue. The right inferior turbinate was also outfractured laterally using a long bladed nasal speculum. Each nasal cavity was irrigated. Hemostasis was assured. Nasopore was positioned within each ethmoid cavity for hemostasis and maintain medialization of each middle turbinate. Bilateral Judge splints were placed and secured with a transseptal suture of 3-0 nylon. A nasal sling was applied and secured with silk tape. The patient tolerated the septoplasty and turbinate reduction well without incident. [facility] 02-16-2024 Note Formatting of this n ote might be different from the original. OPERATIVE NOTE Patient Name: Heraclio Keys DATE OF PROCEDURE: 02/16/2024 SURGEON: Alberto Alvarez DO PREOPERATIVE DIAGNOSES: Pre-op Diagnosis * Deviated nasal septum [J34.2] * Chronic maxillary sinusitis [J32.0] * Chronic ethmoidal sinusitis [J32.2] * Chronic rhinitis [J31.0] * Hypertrophy of nasal turbinates [J34.3] POSTOPERATIVE DIAGNOSES: same PROCEDURE: Procedure(s): SEPTOPLASTY; BILATERAL INFERIOR TURBINATE REDUCTION; BILATERAL LATERA IMPLANT; BILATERAL MAXILLARY ANTROSTOMY; BILATERAL TOTAL ETHMOIDECTOMY; STEREOTACTIC COMPUTER-ASSISTED (NAVIGATIONAL) PROCEDURE SUBMUCOUS RESECTION INFERIOR TURBINATE REPAIR OF NASAL VALVE COLLAPSE WITH SUBCUTANEOUS/SUBMUCOSAL LATERAL WALL IMPLANT(S) NASAL SINUS ENDOSCOPY WITH MAXILLARY ANTROSTOMY NASAL SINUS ENDOSCOPY WITH ETHMOIDECTOMY TOTAL ANTERIOR AND POSTERIOR STEREOTACTIC CRANIOTOMY CRANIAL EXTRADURAL ENDOSCOPIC EXCISION LEBRON BULLOSA LEFT MIDDLE TURBINATE ANESTHESIA: General COMPLICATIONS: NONE ESTIMATED BLOOD LOSS: Minimal GROSS FINDINGS: Nasal endoscopy reveals a significant septal deviation to the right with spurring over the maxillary crest to the left. There is bilateral inferior turbinate enlargement, right-sided more than left. The left middle turbinate was bulbous due to an underlying lebron bullosa. There is a polyp filling the left middle meatus. There is marked amount of edema circumferentially and obstructing the left maxillary sinus. Mucosal edema extended throughout the ethmoid air cells on the left anteriorly more so. The left maxillary sinus was completely filled with yellow purulence. The right middle turbinate was atrophic. There is moderate edema within the mucosa of the right middle meatus. There were a couple moderately sized polyps located within the posterior right ethmoids. DESCRIPTION OF PROCEDURE: Anterior rhinoscopy was performed. The nasal mucosa was locally infiltrated using 1% lidocaine with 1: 100,000 epinephrine into the anterior aspect of the left and right anterior septal mucosa regions. Good blanching of the mucosa was evident as the injection was provided in a submucosal plane. 4% cocaine packs were then applied to cotton plexus and placed within the left right nasal cavities. Time was allowed for vasoconstriction. During this time the facial area was prepped with a Betadine solution and the patient draped in the usual sterile fashion. Note that the endoscopic portion of the surgery was performed using one 0 degree rigid endoscope with its image projected onto a monitor for viewing by all operating room personnel. Sinus dissection was performed using the [employer] microdebrider with a 4.0 mm aggressive cutting bur placed in an oscillation mode. The left lebron bullosa was then addressed, which caused a bulbous affect compromising the middle meatus. The debrider was positioned within the middle meatus with the serrated teeth applied against the lateral aspect of the middle turbinate and lamellar bone. The lateral aspect was carefully shaved to remove the lamellar bone and lateral mucosa taking care to ensure stability of the lebron bone superiorly. The mucosa and lateral lamella were shaved until the entire underlying air cell pocket was exposed, especially by involving the middle turbinate. The medial middle turbinate with its attachment superiorly remained intact. The left maxillary sinus was then addressed. 1% lidocaine with 1: 100,000 epinephrine was infiltrated into the uncinate process and middle turbinate followed by placement of a 4% cocaine packed within the meatus itself. The uncinate process was identified. A side-biting forceps was used to create a posterior to anterior infundibulotomy incision in the midportion of the uncinate process. The shaver device was used to debride and remove the superior and inferior halves of the uncinate process. The natural ostia of the maxillary sinus was identified in this location confirmed with a sinus seeker. Any edematous mucosa was shaved free from its inferior and posterior aspects using the debrider. The left ethmoids were then dissected. The bulla ethmoidalis was entered using the microdebrider shaver. It was entered within its inferior medial aspect. An anterior ethmoidectomy was performed. The basal lamella was then dissected as the posterior ethmoid air cells were then exposed and ventilated. Dissection throughout was completed by removing any thickened and edematous mucosa as well as the bony septations. Dissection was carried posteriorly to a depth of 7 cm as measured from the nasal vestibule. Dissection was then carried anteriorly along the roof of the ethmoids using a curette, up-biting forceps, and the shaver device. All bony septations were removed to create a well ventilated ethmoid cavity. The right maxillary sinus was then addressed. 1% lidocaine with 1: 100,000 epinephrine was infiltrated into the uncinate process and middle turbinate followed by placement of a 4% cocaine packed within the meatus itself. The uncinate process was identified. A side-biting forceps was used to create a posterior to anterior infundibulotomy incision in the midportion of the uncinate process. The shaver device was used to debride and remove the superior and inferior halves of the uncinate process. The natural ostia of the maxillary sinus was identified in this location confirmed with a sinus seeker. Any edematous mucosa was shaved free from its inferior and posterior aspects using the debrider. The right ethmoids were then dissected. The bulla ethmoidalis was entered using the microdebrider shaver. It was entered within its inferior medial aspect. An anterior ethmoidectomy was performed. The basal lamella was then dissected as the posterior ethmoid air cells were then exposed and ventilated. Dissection throughout was completed by removing any thickened and edematous mucosa as well as the bony septations. Dissection was carried posteriorly to a depth of 7 cm as measured from the nasal vestibule. Dissection was then carried anteriorly along the roof of the ethmoids using a curette, up-biting forceps, and the shaver device. All bony septations were removed to create a well ventilated ethmoid cavity. A #15 scalpel it was taken. A left caudal columellar incision was made through the mucocutaneous junction down to the quadrangular plate of the cartilage. A freer elevator was taken in the left mucoperichondriun and mucoperiosteum were then elevated from the left nasal septum. Complete flap elevation was obtained on the left side in atraumatic fashion. A scalpel blade was then taken and an incision made anterior to the deviated segments through the quadrangular plate of the cartilage. Performing through the transcartilaginous incision, the opposing right mucoperichondrium and periosteum were then elevated from the right nasal septum. This was also done using a freer elevator in atraumatic fashion being sure to avoid any mucosal tear. At this point, the nasal septum was isolated within mucosal flaps. Metzenbaum scissors were taken and an incision was made superior and inferior to the deviated segment. This segment was then removed using forceps. Spurring was evident for the maxillary crest which was removed using an osteotome. The spurred segment was also removed using forceps. Anterior rhinoscopy now showed the septum to light in the midline plane. The septoplasty incision was closed with multiple simple sutures of 4-0 chromic. Left inferior turbinate reduction was then performed. 1% lidocaine with 1: 100,000 epinephrine was infiltrated into the anterior aspect of the left inferior turbinate. A #15 scalpel was taken. A stab incision was made into the anterior aspect of the inferior turbinate. A freer elevator was used to elevate the mucosa from the underlying chonchal bone. Elevation was carried along the length of the inferior turbinate. A submucous resection was performed using the [employer] shaver using a turbinate wand placed in an oscillation mode. The wand was tunneled submucosally on the along the length of the left inferior turbinate. A submucous resection was performed as the hypertrophic submucosal tissue was carefully resected as the wand was slowly withdrawn in an anterior direction. The left inferior turbinate was then outfractured laterally using a long bladed nasal speculum. The right inferior turbinate was then addressed in similar fashion. 1% lidocaine with 1: 100,000 epinephrine was infiltrated into the anterior aspect of the inferior turbinate. A stab incision was made into its anterior aspect. A freer elevator was taken and the mucosal flap was elevated along the length of the turbinate. The turbinate wand was tunneled submucosally along its length. A submucous resection was again performed as wand was slowly withdrawn anterior to resect hypertrophic redundant submucosal soft tissue. The right inferior turbinate was also outfractured laterally using a long bladed nasal speculum. Each nasal cavity was irrigated. Hemostasis was assured. Nasopore was positioned within each ethmoid cavity for hemostasis and maintain medialization of each middle turbinate. Bilateral Judge splints were placed and secured with a transseptal suture of 3-0 nylon. A nasal sling was applied and secured with silk tape. The patient tolerated the septoplasty and turbinate reduction well without incident. [facility] 02-16-2024 Hospital Discharge instructions Alberto Alvarez DO - 02/16/2024 7:39 AM EDT Nasal Surgery - Home Instructions Dr. Alberto Alvarez 1. You have undergone surgery and should therefore allow 10 - 14 days to rest. Avoid any heavy lifting, straining, or bending over during this time. 2. Maintain head elevation. 3. Use ice compresses (not a heavy ice bag) as needed for facial or nasal swelling. 4. Use a saline nasal spray (ex; Nikep, Bradford, Afrin Non-Medicated, or Jamil-Synephrine Nasal) 2 to 3 sprays each nostril, 10 to 20 times daily. This helps to rinse and moisturize the nose. 5. Do not blow or otherwise manipulate your nose. 6. Bloody oozing from the nose is normal and is to be expected. You may gently pat at the end of your nose should there be any secretions. Alternatively, you may tape guaze to the nasal tip as a drip pad. 7. You may have received a nasal spray from the hospital. Do not use this unless the nasal congestion is too uncomfortable. If so, you use this spray or Afrin for three (3) days only. 8. If you need to sneeze, do not suppress it. Rather, sneeze with your mouth open. 9. Any loss of smell or taste should return with in a few weeks. 10. Continue all routine home medications. You may use ibuprofen (Advil / Motrin) as needed to supplement relief of discomfort. 11. You should not drive a vehicle for 24 hours after your surgery or while you are taking the prescribed pain medication. 12. If you have any questions or concerns regarding your care, please contact our office at any time. OFFICE NUMBER: [phone] The following attachments cannot be sent through Care Everywhere.Moderate Sedation in Adults Discharge Instructions (Turkish)documented in this encounter [facility] 02-16-2024 Attending History and physical note H&P reviewed. The patient was examined and there are no changes to the H&P. Source Note - Tyrell Abernathy APRN - PURCHASING SUPERVISOR - 02/16/2024 7:17 AM EDT Telemedicine: Patient was seen today via Telehealth by agreement and consent. I used the following Telehealth technology: Audio & Video Visit This patient encounter is appropriate and reasonable under the circumstances given the patient's particular presentation at this time with the plan to undergo a surgical procedure located at an outpatient surgical center. The patient has been advised of the potential risks and limitations of this mode of treatment (including but not limited to the absence of in-person examination) and has agreed to be treated in a remote fashion in spite of them. Any and all of the patient's/patient's family's questions on this issue have been answered and I have made no promises or guarantees to the patient. The patient has also been advised to contact their PCP or surgeon's office for worsening conditions or problems, and seek emergency medical treatment and/or call 911 if the patient deems either necessary. The patient stated that they are currently in the [facility]. If the patient is a minor, permission has been obtained by the parent or guardian for the patient to receive medical care at this visit. The patient verbally consented to the visit held via telephone/video call. The patient understands the limitations of not being physically examined and that we may not be able to address all issues via a telehealth visit. Pre-Surgical History Name: Heraclio Keys : 1980 (Age-43 y.o.) Date of Service: Pt seen/examined on 02/16/2024 Chief Complaint: Pre-surgical evaluation, deviated septum History Of Present Illness: We are asked to see/evaluate Heraclio Keys, a 43 y.o. male for pre-operative evaluation prior to Procedure Information Date/Time: 02/16/24 4070 Procedures: SEPTOPLASTY; BILATERAL INFERIOR TURBINATE REDUCTION; BILATERAL LATERA IMPLANT; BILATERAL MAXILLARY ANTROSTOMY; BILATERAL TOTAL ETHMOIDECTOMY; STEREOTACTIC COMPUTER-ASSISTED (NAVIGATIONAL) PROCEDURE (Nose) - total time 180 minutes SUBMUCOUS RESECTION INFERIOR TURBINATE (Bilateral: Nose) REPAIR OF NASAL VALVE COLLAPSE WITH SUBCUTANEOUS/SUBMUCOSAL LATERAL WALL IMPLANT(S) (Bilateral: Nose) NASAL SINUS ENDOSCOPY WITH MAXILLARY ANTROSTOMY (Bilateral: Nose) NASAL SINUS ENDOSCOPY WITH ETHMOIDECTOMY TOTAL ANTERIOR AND POSTERIOR (Bilateral: Nose) STEREOTACTIC CRANIOTOMY CRANIAL EXTRADURAL (Head) Location: [address] Operating Room Surgeons: Alberto Alvarez DO Heraclio Keys presents with c/o chronic nasal obstruction and recurrent sinus infections x several years. Also endorses nasal congestion, rhinorrhea, facial pressure, and drainage. Denies fever. Conservative measures have provided little relief. Has elected for procedure above. Anesthesia Assessment BMI Classification: Normal Weight (BMI 18.5-24.9) Allergies: Patient has no known allergies. If patient has opioid allergy, is it okay to take Acetaminophen: N/A Any Problems with Anesthesia?: Past General Anesthetic without complications History of Difficult Intubation?: None reported Family History of Problems with Anesthesia?: None noted Overall Dentition: Teeth intact with none loose, has gold tooth top left towards the back Dentures: None Partials: None Mallampati PAT assesment: 2 Mouth Size: WNL TMD: >4cm Neck: WNL GERD:None Implantable Devices:None PAT Pain Score:1 +Pre-op anxiety METs (>4 METS implies low cardiovascular risk from surgery): Reports >4 METs - Able to climb a flight of stairs without chest pain Cardiac Stents:No History of CVA:No History of Seizures:No COPD/Asthma:No MARCELLA: Noncompliant on CPAP Anticoagulant/Antiplatelet Therapy: No Chronic Steroid Use:No Chronic Narcotic Use: No Social History: ETOH: reports that he does not currently use alcohol. Social History Substance and Sexual Activity Drug Use Never TOBACCO: reports that he has quit smoking. His smoking use included cigarettes. His smokeless tobacco use includes chew. Tobacco:Patient instructed preoperatively not to smoke day of surgery and patient received smoking cessation counseling. ASA Score:2 Cardiac EKG: No results found for this or any previous visit. ECHO and EF: No results found for this or any previous visit. ASSESSMENT/PLAN: Based on the above evaluation, the benefits of the planned procedure likely exceed the risks. The patient is medically optimized to proceed with the intermediate - level 1 risk procedure/surgery with no reducible risk factor and without any further cardiopulmonary testing. 1) Deviated nasal septum [J34.2], Chronic maxillary sinusitis [J32.0], Chronic ethmoidal sinusitis [J32.2], Chronic rhinitis [J31.0], Hypertrophy of nasal turbinates [J34.3] - Deferred to surgeon - Pre-surgical instructions given to patient - No further workup required per PAT Protocol Labs Ordered: No EKG Ordered: No Sleep Referral Ordered: NO - ALREADY DIAGNOSED WITH MARCELLA AND PATIENT IS NOT COMPLIANT WITH CPAP #) Pre-operative Anesthesia Evaluation - Anesthesia Assessment complete, noted above - Surgery Site: [facility] - Anesthesia Type: GA #) Anxiety - managed by psychiatry - controlled on ativan prn #) MARCELLA - unable to tolerate #) Insomnia - managed by PCP - controlled on Seroquel HS #) Nicotine dependence - reports daily tobacco use (chews) - instructed pt no chewing tobacco DOS, pt verbalized understanding REVIEW OF SYSTEMS: Review of Systems Constitutional: Negative for chills and fever. HENT: Positive for congestion, sinus pressure and sinus pain. Negative for trouble swallowing. Eyes: Negative for visual disturbance. Respiratory: Negative for chest tightness and shortness of breath. Cardiovascular: Negative for chest pain, palpitations and leg swelling. Gastrointestinal: Negative for abdominal pain, nausea and vomiting. Genitourinary: Negative for difficulty urinating and hematuria. Musculoskeletal: Positive for myalgias. Negative for back pain. Skin: Negative for color change. Neurological: Negative for dizziness, seizures, syncope, speech difficulty and light-headedness. Psychiatric/Behavioral: Negative for agitation and confusion. Labs: No results found for: WBC , HGB , HCT , MCV , PLT No results found for: NA , K , CL , CO2 , BUN , CREATININE , GLUCOSE , CALCIUM , PROT , BILITOT , ALKPHOS , AST , ALT , LABGLOM , AGRATIO , GLOB Past Medical History: Past Medical History: No date: Anxiety No date: Pre-operative anxiety No date: Seasonal allergies No date: Sleep apnea Comment: CPAP machine- does not use Past Surgical History: Past Surgical History: Procedure Laterality Date ROOT CANAL Left Medications Prior to Admission: Prior to Admission medications Not on File Family History: Family History Problem Relation Name Age of Onset Diabetes type II Mother Electronically signed by: DASH Ronquillo CRNA Date: 02/16/2024 at 7:17 AM Physical Exam Pre-Surgical Physical Vitals: Vitals Value Taken Time BP 126/84 02/16/24647 Temp 37 C (98.6 F) 02/16/24647 Pulse 83 02/16/24647 Resp 20 02/16/24647 SpO2 95 % 02/16/24647 Constitutional: No apparent distress, well nourished, and in stable condition. Cardiac: Regular rate and rhythm Abdomen: Soft and nonacute Pulmonary: Clear bilaterally and no wheezing Neuro: Moves extremities X4 with no tremors HEENT: No gross cranial nerve defects and anicteric sclera Skin: Skin warm and dry with no visible rashes Vascular: Adequate perfusion of extremities with no cyanosis Psych: Alert and oriented x3 with appropriate affect Lymphatics: No swelling of arms/hands with no pedal edema Neck: FROM with no JVD [facility] 02-16-2024 History and physical note H&P reviewed. The patient was examined and there are no changes to the H&P. Source Note - DASH Ramos CRNA - 02/16/2024 7:17 AM EDT Telemedicine: Patient was seen today via Telehealth by agreement and consent. I used the following Telehealth technology: Audio & Video Visit This patient encounter is appropriate and reasonable under the circumstances given the patient's particular presentation at this time with the plan to undergo a surgical procedure located at an outpatient surgical center. The patient has been advised of the potential risks and limitations of this mode of treatment (including but not limited to the absence of in-person examination) and has agreed to be treated in a remote fashion in spite of them. Any and all of the patient's/patient's family's questions on this issue have been answered and I have made no promises or guarantees to the patient. The patient has also been advised to contact their PCP or surgeon's office for worsening conditions or problems, and seek emergency medical treatment and/or call 911 if the patient deems either necessary. The patient stated that they are currently in the [facility]. If the patient is a minor, permission has been obtained by the parent or guardian for the patient to receive medical care at this visit. The patient verbally consented to the visit held via telephone/video call. The patient understands the limitations of not being physically examined and that we may not be able to address all issues via a telehealth visit. Pre-Surgical History Name: Heraclio Keys : 1980 (Age-43 y.o.) Date of Service: Pt seen/examined on 02/16/2024 Chief Complaint: Pre-surgical evaluation, deviated septum History Of Present Illness: We are asked to see/evaluate Heraclio Keys, a 43 y.o. male for pre-operative evaluation prior to Procedure Information Date/Time: 02/16/24 4107 Procedures: SEPTOPLASTY; BILATERAL INFERIOR TURBINATE REDUCTION; BILATERAL LATERA IMPLANT; BILATERAL MAXILLARY ANTROSTOMY; BILATERAL TOTAL ETHMOIDECTOMY; STEREOTACTIC COMPUTER-ASSISTED (NAVIGATIONAL) PROCEDURE (Nose) - total time 180 minutes SUBMUCOUS RESECTION INFERIOR TURBINATE (Bilateral: Nose) REPAIR OF NASAL VALVE COLLAPSE WITH SUBCUTANEOUS/SUBMUCOSAL LATERAL WALL IMPLANT(S) (Bilateral: Nose) NASAL SINUS ENDOSCOPY WITH MAXILLARY ANTROSTOMY (Bilateral: Nose) NASAL SINUS ENDOSCOPY WITH ETHMOIDECTOMY TOTAL ANTERIOR AND POSTERIOR (Bilateral: Nose) STEREOTACTIC CRANIOTOMY CRANIAL EXTRADURAL (Head) Location: [address] Operating Room Surgeons: Alberto Alvarez, Heraclio Keys presents with c/o chronic nasal obstruction and recurrent sinus infections x several years. Also endorses nasal congestion, rhinorrhea, facial pressure, and drainage. Denies fever. Conservative measures have provided little relief. Has elected for procedure above. Anesthesia Assessment BMI Classification: Normal Weight (BMI 18.5-24.9) Allergies: Patient has no known allergies. If patient has opioid allergy, is it okay to take Acetaminophen: N/A Any Problems with Anesthesia?: Past General Anesthetic without complications History of Difficult Intubation?: None reported Family History of Problems with Anesthesia?: None noted Overall Dentition: Teeth intact with none loose, has gold tooth top left towards the back Dentures: None Partials: None Mallampati PAT assesment: 2 Mouth Size: WNL TMD: >4cm Neck: WNL GERD:None Implantable Devices:None PAT Pain Score:1 +Pre-op anxiety METs (>4 METS implies low cardiovascular risk from surgery): Reports >4 METs - Able to climb a flight of stairs without chest pain Cardiac Stents:No History of CVA:No History of Seizures:No COPD/Asthma:No MARCELLA: Noncompliant on CPAP Anticoagulant/Antiplatelet Therapy: No Chronic Steroid Use:No Chronic Narcotic Use: No Social History: ETOH: reports that he does not currently use alcohol. Social History Substance and Sexual Activity Drug Use Never TOBACCO: reports that he has quit smoking. His smoking use included cigarettes. His smokeless tobacco use includes chew. Tobacco:Patient instructed preoperatively not to smoke day of surgery and patient received smoking cessation counseling. ASA Score:2 Cardiac EKG: No results found for this or any previous visit. ECHO and EF: No results found for this or any previous visit. ASSESSMENT/PLAN: Based on the above evaluation, the benefits of the planned procedure likely exceed the risks. The patient is medically optimized to proceed with the intermediate - level 1 risk procedure/surgery with no reducible risk factor and without any further cardiopulmonary testing. 1) Deviated nasal septum [J34.2], Chronic maxillary sinusitis [J32.0], Chronic ethmoidal sinusitis [J32.2], Chronic rhinitis [J31.0], Hypertrophy of nasal turbinates [J34.3] - Deferred to surgeon - Pre-surgical instructions given to patient - No further workup required per PAT Protocol Labs Ordered: No EKG Ordered: No Sleep Referral Ordered: NO - ALREADY DIAGNOSED WITH MARCELLA AND PATIENT IS NOT COMPLIANT WITH CPAP #) Pre-operative Anesthesia Evaluation - Anesthesia Assessment complete, noted above - Surgery Site: [facility] - Anesthesia Type: GA #) Anxiety - managed by psychiatry - controlled on ativan prn #) MARCELLA - unable to tolerate #) Insomnia - managed by PCP - controlled on Seroquel HS #) Nicotine dependence - reports daily tobacco use (chews) - instructed pt no chewing tobacco DOS, pt verbalized understanding REVIEW OF SYSTEMS: Review of Systems Constitutional: Negative for chills and fever. HENT: Positive for congestion, sinus pressure and sinus pain. Negative for trouble swallowing. Eyes: Negative for visual disturbance. Respiratory: Negative for chest tightness and shortness of breath. Cardiovascular: Negative for chest pain, palpitations and leg swelling. Gastrointestinal: Negative for abdominal pain, nausea and vomiting. Genitourinary: Negative for difficulty urinating and hematuria. Musculoskeletal: Positive for myalgias. Negative for back pain. Skin: Negative for color change. Neurological: Negative for dizziness, seizures, syncope, speech difficulty and light-headedness. Psychiatric/Behavioral: Negative for agitation and confusion. Labs: No results found for: WBC , HGB , HCT , MCV , PLT No results found for: NA , K , CL , CO2 , BUN , CREATININE , GLUCOSE , CALCIUM , PROT , BILITOT , ALKPHOS , AST , ALT , LABGLOM , AGRATIO , GLOB Past Medical History: Past Medical History: No date: Anxiety No date: Pre-operative anxiety No date: Seasonal allergies No date: Sleep apnea Comment: CPAP machine- does not use Past Surgical History: Past Surgical History: Procedure Laterality Date ROOT CANAL Left Medications Prior to Admission: Prior to Admission medications Not on File Family History: Family History Problem Relation Name Age of Onset Diabetes type II Mother Electronically signed by: DASH Ronquillo CRNA Date: 02/16/2024 at 7:17 AM Physical Exam Pre-Surgical Physical Vitals: Vitals Value Taken Time BP 126/84 02/16/24 0648 Temp 37 C (98.6 F) 02/16/24 0648 Pulse 83 02/16/24 0648 Resp 20 02/16/24 0648 SpO2 95 % 02/16/24 0648 Constitutional: No apparent distress, well nourished, and in stable condition. Cardiac: Regular rate and rhythm Abdomen: Soft and nonacute Pulmonary: Clear bilaterally and no wheezing Neuro: Moves extremities X4 with no tremors HEENT: No gross cranial nerve defects and anicteric sclera Skin: Skin warm and dry with no visible rashes Vascular: Adequate perfusion of extremities with no cyanosis Psych: Alert and oriented x3 with appropriate affect Lymphatics: No swelling of arms/hands with no pedal edema Neck: FROM with no JVD Telemedicine: Patient was seen today via Telehealth by agreement and consent. I used the following Telehealth technology: Audio & Video Visit This patient encounter is appropriate and reasonable under the circumstances given the patient's particular presentation at this time with the plan to undergo a surgical procedure located at an outpatient surgical center. The patient has been advised of the potential risks and limitations of this mode of treatment (including but not limited to the absence of in-person examination) and has agreed to be treated in a remote fashion in spite of them. Any and all of the patient's/patient's family's questions on this issue have been answered and I have made no promises or guarantees to the patient. The patient has also been advised to contact their PCP or surgeon's office for worsening conditions or problems, and seek emergency medical treatment and/or call 911 if the patient deems either necessary. The patient stated that they are currently in the [facility]. If the patient is a minor, permission has been obtained by the parent or guardian for the patient to receive medical care at this visit. The patient verbally consented to the visit held via telephone/video call. The patient understands the limitations of not being physically examined and that we may not be able to address all issues via a telehealth visit. Pre-Surgical History Name: Heraclio Keys : 1980 (Age-43 y.o.) Date of Service: Pt seen/examined on 02/16/2024 Chief Complaint: Pre-surgical evaluation, deviated septum History Of Present Illness: We are asked to see/evaluate Heraclio Keys, a 43 y.o. male for pre-operative evaluation prior to Procedure Information Date/Time: 02/16/24 3902 Procedures: SEPTOPLASTY; BILATERAL INFERIOR TURBINATE REDUCTION; BILATERAL LATERA IMPLANT; BILATERAL MAXILLARY ANTROSTOMY; BILATERAL TOTAL ETHMOIDECTOMY; STEREOTACTIC COMPUTER-ASSISTED (NAVIGATIONAL) PROCEDURE (Nose) - total time 180 minutes SUBMUCOUS RESECTION INFERIOR TURBINATE (Bilateral: Nose) REPAIR OF NASAL VALVE COLLAPSE WITH SUBCUTANEOUS/SUBMUCOSAL LATERAL WALL IMPLANT(S) (Bilateral: Nose) NASAL SINUS ENDOSCOPY WITH MAXILLARY ANTROSTOMY (Bilateral: Nose) NASAL SINUS ENDOSCOPY WITH ETHMOIDECTOMY TOTAL ANTERIOR AND POSTERIOR (Bilateral: Nose) STEREOTACTIC CRANIOTOMY CRANIAL EXTRADURAL (Head) Location: [address] Operating Room Surgeons: Alberto Alvarez, DO Heraclio Keys presents with c/o chronic nasal obstruction and recurrent sinus infections x several years. Also endorses nasal congestion, rhinorrhea, facial pressure, and drainage. Denies fever. Conservative measures have provided little relief. Has elected for procedure above. Anesthesia Assessment BMI Classification: Normal Weight (BMI 18.5-24.9) Allergies: Patient has no known allergies. If patient has opioid allergy, is it okay to take Acetaminophen: N/A Any Problems with Anesthesia?: Past General Anesthetic without complications History of Difficult Intubation?: None reported Family History of Problems with Anesthesia?: None noted Overall Dentition: Teeth intact with none loose, has gold tooth top left towards the back Dentures: None Partials: None Mallampati PAT assesment: 2 Mouth Size: WNL TMD: >4cm Neck: WNL GERD:None Implantable Devices:None PAT Pain Score:1 +Pre-op anxiety METs (>4 METS implies low cardiovascular risk from surgery): Reports >4 METs - Able to climb a flight of stairs without chest pain Cardiac Stents:No History of CVA:No History of Seizures:No COPD/Asthma:No MARCELLA: Noncompliant on CPAP Anticoagulant/Antiplatelet Therapy: No Chronic Steroid Use:No Chronic Narcotic Use: No Social History: ETOH: reports that he does not currently use alcohol. Social History Substance and Sexual Activity Drug Use Never TOBACCO: reports that he has quit smoking. His smoking use included cigarettes. His smokeless tobacco use includes chew. Tobacco:Patient instructed preoperatively not to smoke day of surgery and patient received smoking cessation counseling. ASA Score:2 Cardiac EKG: No results found for this or any previous visit. ECHO and EF: No results found for this or any previous visit. ASSESSMENT/PLAN: Based on the above evaluation, the benefits of the planned procedure likely exceed the risks. The patient is medically optimized to proceed with the intermediate - level 1 risk procedure/surgery with no reducible risk factor and without any further cardiopulmonary testing. 1) Deviated nasal septum [J34.2], Chronic maxillary sinusitis [J32.0], Chronic ethmoidal sinusitis [J32.2], Chronic rhinitis [J31.0], Hypertrophy of nasal turbinates [J34.3] - Deferred to surgeon - Pre-surgical instructions given to patient - No further workup required per PAT Protocol Labs Ordered: No EKG Ordered: No Sleep Referral Ordered: NO - ALREADY DIAGNOSED WITH MARCELLA AND PATIENT IS NOT COMPLIANT WITH CPAP #) Pre-operative Anesthesia Evaluation - Anesthesia Assessment complete, noted above - Surgery Site: [facility] - Anesthesia Type: GA #) Anxiety - managed by psychiatry - controlled on ativan prn #) MARCELLA - unable to tolerate #) Insomnia - managed by PCP - controlled on Seroquel HS #) Nicotine dependence - reports daily tobacco use (chews) - instructed pt no chewing tobacco DOS, pt verbalized understanding REVIEW OF SYSTEMS: Review of Systems Constitutional: Negative for chills and fever. HENT: Positive for congestion, sinus pressure and sinus pain. Negative for trouble swallowing. Eyes: Negative for visual disturbance. Respiratory: Negative for chest tightness and shortness of breath. Cardiovascular: Negative for chest pain, palpitations and leg swelling. Gastrointestinal: Negative for abdominal pain, nausea and vomiting. Genitourinary: Negative for difficulty urinating and hematuria. Musculoskeletal: Positive for myalgias. Negative for back pain. Skin: Negative for color change. Neurological: Negative for dizziness, seizures, syncope, speech difficulty and light-headedness. Psychiatric/Behavioral: Negative for agitation and confusion. Labs: No results found for: WBC , HGB , HCT , MCV , PLT No results found for: NA , K , CL , CO2 , BUN , CREATININE , GLUCOSE , CALCIUM , PROT , BILITOT , ALKPHOS , AST , ALT , LABGLOM , AGRATIO , GLOB Past Medical History: Past Medical History: No date: Anxiety No date: Pre-operative anxiety No date: Seasonal allergies No date: Sleep apnea Comment: CPAP machine- does not use Past Surgical History: Past Surgical History: Procedure Laterality Date ROOT CANAL Left Medications Prior to Admission: Prior to Admission medications Not on File Family History: Family History Problem Relation Name Age of Onset Diabetes type II Mother Electronically signed by: Tyrell Abernathy APRN - VANESA Date: 02/16/2024 at 7:17 AM Physical Exam Pre-Surgical Physical Vitals: Vitals Value Taken Time BP 126/84 02/16/24647 Temp 37 C (98.6 F) 02/16/24647 Pulse 83 02/16/24647 Resp 20 02/16/24647 SpO2 95 % 02/16/24647 Constitutional: No apparent distress, well nourished, and in stable condition. Cardiac: Regular rate and rhythm Abdomen: Soft and nonacute Pulmonary: Clear bilaterally and no wheezing Neuro: Moves extremities X4 with no tremors HEENT: No gross cranial nerve defects and anicteric sclera Skin: Skin warm and dry with no visible rashes Vascular: Adequate perfusion of extremities with no cyanosis Psych: Alert and oriented x3 with appropriate affect Lymphatics: No swelling of arms/hands with no pedal edema Neck: FROM with no JVD documented in this encounter [facility] 02-16-2024 Note H&P reviewed. The pa sylvester was examined and there are no changes to the H&P. [facility] 02-16-2024 History and physical note Telemedicine: Patient was seen today via Telehealth by agreement and consent. I used the following Telehealth technology: Audio & Video Visit This patient encounter is appropriate and reasonable under the circumstances given the patient's particular presentation at this time with the plan to undergo a surgical procedure located at an outpatient surgical center. The patient has been advised of the potential risks and limitations of this mode of treatment (including but not limited to the absence of in-person examination) and has agreed to be treated in a remote fashion in spite of them. Any and all of the patient's/patient's family's questions on this issue have been answered and I have made no promises or guarantees to the patient. The patient has also been advised to contact their PCP or surgeon's office for worsening conditions or problems, and seek emergency medical treatment and/or call 911 if the patient deems either necessary. The patient stated that they are currently in the state [facility]. If the patient is a minor, permission has been obtained by the parent or guardian for the patient to receive medical care at this visit. The patient verbally consented to the visit held via telephone/video call. The patient understands the limitations of not being physically examined and that we may not be able to address all issues via a telehealth visit. Pre-Surgical History Name: Heraclio Keys : 1980 (Age-43 y.o.) Date of Service: Pt seen/examined on 02/16/2024 Chief Complaint: Pre-surgical evaluation, deviated septum History Of Present Illness: We are asked to see/evaluate Heraclio Keys, a 43 y.o. male for pre-operative evaluation prior to Procedure Information Date/Time: 02/16/24 9973 Procedures: SEPTOPLASTY; BILATERAL INFERIOR TURBINATE REDUCTION; BILATERAL LATERA IMPLANT; BILATERAL MAXILLARY ANTROSTOMY; BILATERAL TOTAL ETHMOIDECTOMY; STEREOTACTIC COMPUTER-ASSISTED (NAVIGATIONAL) PROCEDURE (Nose) - total time 180 minutes SUBMUCOUS RESECTION INFERIOR TURBINATE (Bilateral: Nose) REPAIR OF NASAL VALVE COLLAPSE WITH SUBCUTANEOUS/SUBMUCOSAL LATERAL WALL IMPLANT(S) (Bilateral: Nose) NASAL SINUS ENDOSCOPY WITH MAXILLARY ANTROSTOMY (Bilateral: Nose) NASAL SINUS ENDOSCOPY WITH ETHMOIDECTOMY TOTAL ANTERIOR AND POSTERIOR (Bilateral: Nose) STEREOTACTIC CRANIOTOMY CRANIAL EXTRADURAL (Head) Location: [address] Operating Room Surgeons: Alberto Alvarez, Heraclio Keys presents with c/o chronic nasal obstruction and recurrent sinus infections x several years. Also endorses nasal congestion, rhinorrhea, facial pressure, and drainage. Denies fever. Conservative measures have provided little relief. Has elected for procedure above. Anesthesia Assessment BMI Classification: Normal Weight (BMI 18.5-24.9) Allergies: Patient has no known allergies. If patient has opioid allergy, is it okay to take Acetaminophen: N/A Any Problems with Anesthesia?: Past General Anesthetic without complications History of Difficult Intubation?: None reported Family History of Problems with Anesthesia?: None noted Overall Dentition: Teeth intact with none loose, has gold tooth top left towards the back Dentures: None Partials: None Mallampati PAT assesment: 2 Mouth Size: WNL TMD: >4cm Neck: WNL GERD:None Implantable Devices:None PAT Pain Score:1 +Pre-op anxiety METs (>4 METS implies low cardiovascular risk from surgery): Reports >4 METs - Able to climb a flight of stairs without chest pain Cardiac Stents:No History of CVA:No History of Seizures:No COPD/Asthma:No MARCELLA: Noncompliant on CPAP Anticoagulant/Antiplatelet Therapy: No Chronic Steroid Use:No Chronic Narcotic Use: No Social History: ETOH: reports that he does not currently use alcohol. Social History Substance and Sexual Activity Drug Use Never TOBACCO: reports that he has quit smoking. His smoking use included cigarettes. His smokeless tobacco use includes chew. Tobacco:Patient instructed preoperatively not to smoke day of surgery and patient received smoking cessation counseling. ASA Score:2 Cardiac EKG: No results found for this or any previous visit. ECHO and EF: No results found for this or any previous visit. ASSESSMENT/PLAN: Based on the above evaluation, the benefits of the planned procedure likely exceed the risks. The patient is medically optimized to proceed with the intermediate - level 1 risk procedure/surgery with no reducible risk factor and without any further cardiopulmonary testing. 1) Deviated nasal septum [J34.2], Chronic maxillary sinusitis [J32.0], Chronic ethmoidal sinusitis [J32.2], Chronic rhinitis [J31.0], Hypertrophy of nasal turbinates [J34.3] - Deferred to surgeon - Pre-surgical instructions given to patient - No further workup required per PAT Protocol Labs Ordered: No EKG Ordered: No Sleep Referral Ordered: NO - ALREADY DIAGNOSED WITH MARCELLA AND PATIENT IS NOT COMPLIANT WITH CPAP #) Pre-operative Anesthesia Evaluation - Anesthesia Assessment complete, noted above - Surgery Site: [facility] - Anesthesia Type: GA #) Anxiety - managed by psychiatry - controlled on ativan prn #) MARCELLA - unable to tolerate #) Insomnia - managed by PCP - controlled on Seroquel HS #) Nicotine dependence - reports daily tobacco use (chews) - instructed pt no chewing tobacco DOS, pt verbalized understanding REVIEW OF SYSTEMS: Review of Systems Constitutional: Negative for chills and fever. HENT: Positive for congestion, sinus pressure and sinus pain. Negative for trouble swallowing. Eyes: Negative for visual disturbance. Respiratory: Negative for chest tightness and shortness of breath. Cardiovascular: Negative for chest pain, palpitations and leg swelling. Gastrointestinal: Negative for abdominal pain, nausea and vomiting. Genitourinary: Negative for difficulty urinating and hematuria. Musculoskeletal: Positive for myalgias. Negative for back pain. Skin: Negative for color change. Neurological: Negative for dizziness, seizures, syncope, speech difficulty and light-headedness. Psychiatric/Behavioral: Negative for agitation and confusion. Labs: No results found for: WBC , HGB , HCT , MCV , PLT No results found for: NA , K , CL , CO2 , BUN , CREATININE , GLUCOSE , CALCIUM , PROT , BILITOT , ALKPHOS , AST , ALT , LABGLOM , AGRATIO , GLOB Past Medical History: Past Medical History: No date: Anxiety No date: Pre-operative anxiety No date: Seasonal allergies No date: Sleep apnea Comment: CPAP machine- does not use Past Surgical History: Past Surgical History: Procedure Laterality Date ROOT CANAL Left Medications Prior to Admission: Prior to Admission medications Not on File Family History: Family History Problem Relation Name Age of Onset Diabetes type II Mother Electronically signed by: DASH Ronquillo CRNA Date: 02/16/2024 at 7:17 AM Physical Exam Pre-Surgical Physical Vitals: Vitals Value Taken Time BP 126/84 02/16/24 0648 Temp 37 C (98.6 F) 02/16/24 0648 Pulse 83 02/16/24 0648 Resp 20 02/16/24 0648 SpO2 95 % 02/16/24647 Constitutional: No apparent distress, well nourished, and in stable condition. Cardiac: Regular rate and rhythm Abdomen: Soft and nonacute Pulmonary: Clear bilaterally and no wheezing Neuro: Moves extremities X4 with no tremors HEENT: No gross cranial nerve defects and anicteric sclera Skin: Skin warm and dry with no visible rashes Vascular: Adequate perfusion of extremities with no cyanosis Psych: Alert and oriented x3 with appropriate affect Lymphatics: No swelling of arms/hands with no pedal edema Neck: FROM with no JVD [employer] Work Phone: 02-16-2024 Note Telemedicine: Patient was seen today via Telehealth by agreement and consent. I used the following Telehealth technology: Audio & Video Visit This patient encounter is appropriate and reasonable under the circumstances given the patient's particular presentation at this time with the plan to undergo a surgical procedure located at an outpatient surgical center. The patient has been advised of the potential risks and limitations of this mode of treatment (including but not limited to the absence of in-person examination) and has agreed to be treated in a remote fashion in spite of them. Any and all of the patient's/patient's family's questions on this issue have been answered and I have made no promises or guarantees to the patient. The patient has also been advised to contact their PCP or surgeon's office for worsening conditions or problems, and seek emergency medical treatment and/or call 911 if the patient deems either necessary. The patient stated that they are currently in the [facility]. If the patient is a minor, permission has been obtained by the parent or guardian for the patient to receive medical care at this visit. The patient verbally consented to the visit held via telephone/video call. The patient understands the limitations of not being physically examined and that we may not be able to address all issues via a telehealth visit. Pre-Surgical History Name: Heraclio Keys : 1980 (Age-43 y.o.) Date of Service: Pt seen/examined on 02/16/2024 Chief Complaint: Pre-surgical evaluation, deviated septum History Of Present Illness: We are asked to see/evaluate Heraclio Keys, a 43 y.o. male for pre-operative evaluation prior to Procedure Information Date/Time: 02/16/24 9914 Procedures: SEPTOPLASTY; BILATERAL INFERIOR TURBINATE REDUCTION; BILATERAL LATERA IMPLANT; BILATERAL MAXILLARY ANTROSTOMY; BILATERAL TOTAL ETHMOIDECTOMY; STEREOTACTIC COMPUTER-ASSISTED (NAVIGATIONAL) PROCEDURE (Nose) - total time 180 minutes SUBMUCOUS RESECTION INFERIOR TURBINATE (Bilateral: Nose) REPAIR OF NASAL VALVE COLLAPSE WITH SUBCUTANEOUS/SUBMUCOSAL LATERAL WALL IMPLANT(S) (Bilateral: Nose) NASAL SINUS ENDOSCOPY WITH MAXILLARY ANTROSTOMY (Bilateral: Nose) NASAL SINUS ENDOSCOPY WITH ETHMOIDECTOMY TOTAL ANTERIOR AND POSTERIOR (Bilateral: Nose) STEREOTACTIC CRANIOTOMY CRANIAL EXTRADURAL (Head) Location: [address] Operating Room Surgeons: Alberto Alvarez DO Heraclio Keys presents with c/o chronic nasal obstruction and recurrent sinus infections x several years. Also endorses nasal congestion, rhinorrhea, facial pressure, and drainage. Denies fever. Conservative measures have provided little relief. Has elected for procedure above. Anesthesia Assessment BMI Classification: Normal Weight (BMI 18.5-24.9) Allergies: Patient has no known allergies. If patient has opioid allergy, is it okay to take Acetaminophen: N/A Any Problems with Anesthesia?: Past General Anesthetic without complications History of Difficult Intubation?: None reported Family History of Problems with Anesthesia?: None noted Overall Dentition: Teeth intact with none loose, has gold tooth top left towards the back Dentures: None Partials: None Mallampati PAT assesment: 2 Mouth Size: WNL TMD: >4cm Neck: WNL GERD:None Implantable Devices:None PAT Pain Score:1 +Pre-op anxiety METs (>4 METS implies low cardiovascular risk from surgery): Reports >4 METs - Able to climb a flight of stairs without chest pain Cardiac Stents:No History of CVA:No History of Seizures:No COPD/Asthma:No MARCELLA: Noncompliant on CPAP Anticoagulant/Antiplatelet Therapy: No Chronic Steroid Use:No Chronic Narcotic Use: No Social History: ETOH: reports that he does not currently use alcohol. Social History Substance and Sexual Activity Drug Use Never TOBACCO: reports that he has quit smoking. His smoking use included cigarettes. His smokeless tobacco use includes chew. Tobacco:Patient instructed preoperatively not to smoke day of surgery and patient received smoking cessation counseling. ASA Score:2 Cardiac EKG: No results found for this or any previous visit. ECHO and EF: No results found for this or any previous visit. ASSESSMENT/PLAN: Based on the above evaluation, the benefits of the planned procedure likely exceed the risks. The patient is medically optimized to proceed with the intermediate - level 1 risk procedure/surgery with no reducible risk factor and without any further cardiopulmonary testing. 1) Deviated nasal septum [J34.2], Chronic maxillary sinusitis [J32.0], Chronic ethmoidal sinusitis [J32.2], Chronic rhinitis [J31.0], Hypertrophy of nasal turbinates [J34.3] - Deferred to surgeon - Pre-surgical instructions given to patient - No further workup required per PAT Protocol Labs Ordered: No EKG Ordered: No Sleep Referral Ordered: NO - ALREADY DIAG (more content not included)... [facility] 02-09-2024 Note Patient: Heraclio Ferreira on Procedure Information Date/Time: 02/16/24 0730 Procedures: SEPTOPLASTY; BILATERAL INFERIOR TURBINATE REDUCTION; BILATERAL LATERA IMPLANT; BILATERAL MAXILLARY ANTROSTOMY; BILATERAL TOTAL ETHMOIDECTOMY; STEREOTACTIC COMPUTER-ASSISTED (NAVIGATIONAL) PROCEDURE (Nose) - total time 180 minutes SUBMUCOUS RESECTION INFERIOR TURBINATE (Bilateral: Nose) REPAIR OF NASAL VALVE COLLAPSE WITH SUBCUTANEOUS/SUBMUCOSAL LATERAL WALL IMPLANT(S) (Bilateral: Nose) NASAL SINUS ENDOSCOPY WITH MAXILLARY ANTROSTOMY (Bilateral: Nose) NASAL SINUS ENDOSCOPY WITH ETHMOIDECTOMY TOTAL ANTERIOR AND POSTERIOR (Bilateral: Nose) STEREOTACTIC CRANIOTOMY CRANIAL EXTRADURAL (Head) Location: [address] Operating Room Surgeons: Alberto Alvarez DO Relevant Problems No relevant active problems Past Medical History: Past Medical History: No date: Anxiety No date: Pre-operative anxiety No date: Seasonal allergies No date: Sleep apnea Past Surgical History: Past Surgical History: No date: ROOT CANAL; Left Social History: TOBACCO: reports that he does not have a smoking history on file. His smokeless tobacco use includes chew. ETOH: reports that he does not currently use alcohol. Social History Substance and Sexual Activity Drug Use Never Family History: Family History Problem Relation Name Age of Onset Diabetes type II Mother Screening: unknown Clinical information reviewed: Allergies Meds Med Hx Surg Hx Fam Hx Physical Exam Airway Mallampati: II TM distance: >3 FB Neck ROM: full Mouth Open: normalendotracheal tube not in place Cardiovascular Dental Comments: has gold tooth top left towards the back dentition normal Pulmonary Abdominal Anesthesia Plan patient is NPO appropriate Any family history or previous problems with anesthesia no ASA 2 general Any family history or previous problems with anesthesia no The patient is not a current smoker. Anesthetic plan and risks discussed with patient. Anesthesia Rodriguez Considerations Significant preop anxiety +chews tobacco MARCELLA Screening Labs: No results found for: WBC , HGB , HCT , MCV , PLT No results found for: SODIUM , NA , POTASSIUM , K , CHLORIDE , CL , CO2 , BUN , CREATININE , GLUCOSE , CALCIUM , PROT , BILIRUBINFL , ALKPHOS , AST , ALT , EGFR , GLOB No echocardiogram results found for the past 14 days No results found for this or any previous visit. Equipment Requests: Additional Equipment Requests [employer] [facility] 12-19-2023 Telephone encounter Note No Show Documentation Heraclio Keys no showed for an appointment on 12/19/23 with Savana Louie DO at 4:00 pm. He was scheduled for shoulder pain. I called and was unable to speak with the patient regarding his missed appointment. Heraclio did not state the reason that he missed his appointment was because unable to reach pt . Resources discussed/offered to patient: unable to leave message. No show determined to be fault of patient: Yes This is the patients first no show in the last 12 months. Patient was rescheduled for NA. Letter sent through [employer]. Is this the Third or Fourth No Show ? No August Akash Hutton December 19, 2023 4:39 PM [facility] 12-19-2023 Miscellaneous Notes No Show Documentation Heraclio Keys no showed for an appointment on 12/19/23 with Savana Louie DO at 4:00 pm. He was scheduled for shoulder pain. I called and was unable to speak with the patient regarding his missed appointment. Heraclio did not state the reason that he missed his appointment was because unable to reach pt . Resources discussed/offered to patient: unable to leave message. No show determined to be fault of patient: Yes This is the patients first no show in the last 12 months. Patient was rescheduled for NA. Letter sent through [employer]. Is this the Third or Fourth No Show ? No August Akash Hutton December 19, 2023 4:39 PM documented in this encounter [facility] 05-16-2023 Note HNO ID: [id number] Author: SAVANA LOUIE DO Service: ? Author Type: Physician Type: Progress Notes Filed: 05/17/2023 14:00 Note Text: SUBJECTIVE: 43 year old male here to establish. I have fully reviewed the past medical, surgical, social and family history and updated the Histories section of [facility]. He has had anxiety and insomnia since he was a child He has taken OTC meds, but they caused his stomach to be upset Melatonin is not working He has always had social anxiety, has been able to control it up until now He had a couple of tragedies in the recent past He had a panic attack at work, went to the ED because he thought he was having a heart attack He quit his job because of the anxiety He has trouble falling asleep and occasionally is awakened by twitches and shock-like sensations in his whole body He would like a referral to a psychiatrist He broke his nose when he was 14 or 15 years old He is now having trouble breathing from his right nostril He has had ringing in his left ear for about 1-1/2 years He drinks 1-2 cups of tea in the morning, but no other caffeinated beverages throughout the day ALLERGIES No Known Allergies Current Outpatient Medications Medication Sig Dispense Refill melatonin 10 mg tab Take 30 mg by mouth daily at bedtime. pseudoephedrine (SUDAFED) 30 mg tablet Take 2 tablets by mouth twice daily. (Patient not taking: Reported on 05/16/2023) 20 tablet 0 fluticasone (FLONASE) 50 mcg/actuation nasal spray Use 2 Sprays in each nostril once daily. Rinse mouth after use. (Patient not taking: Reported on 05/16/2023) 1 Bottle 0 No current facility-administered medications for this visit. There is no problem list on file for this patient. Social History Tobacco Use Smoking status: Former Types: Cigarettes Smokeless tobacco: Current Types: Chew Vaping Use Vaping Use: Never used Substance Use Topics Alcohol use: Not Currently Drug use: Never Family History Problem Relation Age of Onset Diabetes Mother Hypertension Mother Hyperlipidemia Mother Stroke Mother Hyperlipidemia Sister Hypertension Sister Diabetes Sister Colon Cancer Maternal Grandmother Colon Cancer Maternal Grandfather Reviewed past medical history, family history and surgeries. All medications and supplements were reviewed with the patient. REVIEW OF SYSTEMS GENERAL: No weight loss, malaise or fevers HEENT: positive for tinnitus b/l, left greater than right, trouble breathing from right nare, negative for frequent or significant headaches, NECK: Negative for lumps, goiter, pain and significant neck swelling RESPIRATORY: Negative for cough, hemoptysis, wheezing, COPD, dyspnea or shortness of breath CARDIOVASCULAR: Negative for chest pain, leg swelling, hypertension, CHF or palpitations GI: No nausea, vomiting, or diarrhea : No history of dysuria, frequency or incontinence MUSCULOSKELETAL: Negative for joint pain or swelling, back pain or muscle pain SKIN: Negative for lesions, rash, and itching PSYCH: Positive for anxiety, insomnia HEMATOLOGY/LYMPHOLOGY: Negative for prolonged bleeding, bruising easily or swollen nodes ENDOCRINE: Negative for cold or heat intolerance, polyuria, polydipsia and goiter NEURO: No history of headaches, syncope, paralysis, seizures or tremors PHYSICAL EXAMINATION: BP 112/72 Pulse 64 Temp 36.7 ?C (98 ?F) Resp 16 Ht 179.1 cm (5' 10.5 ) Wt 73.5 kg (162 lb) SpO2 98% BMI 22.92 kg/m? General appearance: Well appearing, alert, in no acute distress, well-hydrated, well nourished. Skin: Skin color, texture, turgor normal, no suspicious rashes or lesions Head: Normocephalic, no masses, lesions, tenderness or abnormalities, septum deviated to the right Eyes: Anicteric sclera. Pupils are equally round and reactive to light. Extraocular movements are intact. Ears: External ears normal, canals clear Oropharynx: Lips, mucosa, and tongue normal, teeth and gums normal, oropharynx normal Neck: Supple, no adenopathy; thyroid symmetric, normal size, no bruits Back: Normal exam Lungs: Lungs clear to auscultation. No wheezing, rhonchi, rales. Heart: RRR without murmur, gallop, or rubs. No ectopy Abdomen: Normal abdominal exam, Abdomen soft, non-tender. Bowel sounds normal. No masses, organomegaly Extremities: No deformities, edema, skin discoloration, clubbing or cyanosis. Good capillary refill. Musculoskeletal: No joint swelling, deformity, or tenderness Peripheral pulses: Normal Neuro: Gait normal. Reflexes normal and symmetric. Sensation grossly intact. ASSESSMENT/PLAN: 1. Well adult exam - ICD9: V70.0, ICD10: Z00.00 (primary diagnosis) - Counseled on healthy diet and regular exercise 2. Deviated septum - ICD9: 470, ICD10: J34.2 - CONSULT TO ENT - [facility] 3. CHECO (generalized anxiety disorder) - ICD9: 300.02, ICD10: F41.1 - CONSULT TO PSYCHIATRY - [facility] (more content not included)... [facility] 12-11-2022 Hospital Discharge instructions Patient Education 12/11/2022 13:25:14 Anxiety Reaction Anxiety Reaction Anxiety is the feeling we all get when we think something bad might happen. It is a normal response to stress and usually causes only a mild reaction. When anxiety becomes more severe, it can interfere with daily life. In some cases, you may not even be aware of what it is you re anxious about. There may also be a genetic link or it may be a learned behavior in the home. Both psychological and physical triggers cause stress reaction. It's often a response to fear or emotional stress, real or imagined. This stress may come from home, family, work, or social relationships. During an anxiety reaction, you may feel: Helpless Nervous Depressed Irritable Your body may show signs of anxiety in many ways. You may experience: Dry mouth Shakiness Dizziness Weakness Trouble breathing Breathing fast (hyperventilating) Chest pressure Sweating Headache Nausea Diarrhea Tiredness Inability to sleep Sexual problems Home care Try to locate the sources of stress in your life. They may not be obvious. These may include: oDaily hassles of life (such as traffic jams, missed appointments, or car troubles) oMajor life changes, both good (new baby or job promotion) and bad (loss of job or loss of loved one) oOverload: feeling that you have too many responsibilities and can't take care of all of them at once oFeeling helpless or feeling that your problems are beyond what you re able to solve Notice how your body reacts to stress. Learn to listen to your body signals. This will help you take action before the stress becomes severe. When you can, do something about the source of your stress. (Avoid hassles, limit the amount of change that happens in your life at one time and take a break when you feel overloaded). Unfortunately, many stressful situations can't be avoided. It is necessary to learn how to better manage stress. There are many proven methods that will reduce your anxiety. These include simple things like exercise, good nutrition, and adequate rest. Also, there are certain techniques that are helpful: oRelaxation oBreathing exercises oVisualization oBiofeedback oMeditation For more information about this, consult your healthcare provider or go to a local bookstore and review the many books and tapes available on this subject. Follow-up care If you feel that your anxiety is not responding to self-help measures, contact your healthcare provider or make an appointment with a counselor. You may need short-term psychological counseling and temporary medicine to help you manage stress. Call 911 Call 911 if any of these happen: Trouble breathing Confusion Drowsiness or trouble wakening Fainting or loss of consciousness Rapid heart rate Seizure New chest pain that becomes more severe, lasts longer, or spreads into your shoulder, arm, neck, jaw, or back When to seek medical advice Call your healthcare provider right away if any of these happen: Your symptoms get worse Severe headache not relieved by rest and mild pain reliever [phone] [employer]. [address] [place] [address]. All rights reserved. This information is not intended as a substitute for professional medical care. Always follow your healthcare professional's instructions. 12/11/2022 13:25:07 Palpitations Heart Palpitations Palpitations are the feeling that your heart is beating hard, fast, or irregular. Some describe it as pounding or skipped beats. Palpitations may occur in someone with heart disease, but can also occur in a healthy person. Heart-related causes: Arrhythmia (a change from the heart's normal rhythm) Heart valve disease Disease of the heart muscle Coronary artery disease High blood pressure Ong-ifmri-hvvuwuj causes: Certain medicines such as asthma inhalers and decongestants Some herbal supplements, energy drinks and pills, and weight loss pills Illegal stimulant drugs such as cocaine, crank, methamphetamine, PCP, bath salts, or ecstasy Caffeine, alcohol, and tobacco Medical conditions such as thyroid disease, anemia, anxiety, and panic disorder Sometimes the cause can't be found. Home care Follow these home care tips: Don't use too much caffeine, alcohol, tobacco, or any stimulant drugs. Tell your doctor about any prescription or tiuj-kyc-bxhmanz or herbal medicines you take. Follow-up care Follow up with your doctor, or as advised. Call 911 This is the fastest and safest way to get to the emergency department. The paramedics can also begin treatment on the way to the hospital, if needed. Don't wait until your symptoms are severe to call 911. These are reasons to call 911: Chest pain Shortness of breath Feeling lightheaded, faint, or dizzy Fainting or loss of consciousness Very irregular heartbeat Rapid heartbeat that makes you uncomfortable Slower than usual heart rate associated with symptoms Slower than usual heart rate Chest pain with weakness, dizziness, heavy sweating, nausea, or vomiting Extreme drowsiness or confusion Weakness of an arm or leg, or on 1 side of the face Difficulty with speech or vision When to seek medical advice Call your healthcare provider right away if you have palpitations and any of the following: Weakness Dizziness Lightheadedness Fainting [phone] [employer] [place] [address]. All rights reserved. This information is not intended as a substitute for professional medical care. Always follow your healthcare professional's instructions. Follow Up Care 12/11/2022 10:38:24 With:NOT PHYSICIAN Address:Unknown When:2-4 days With:INES TORRES Address: [address] [facility] [address] [place] [address]- [phone] Business (1) When:2-4 days With:AYAN HERNANDES Address: [place] [address]- [phone] Business (1) When:2-4 days Comments:Return to ED if symptoms worsen With:Go to emergency room if symptoms worsen Address:Unknown When:2-4 days [facility] 12-11-2022 Note Discharge Instructions Thank you for allowing [facility] to assist you with your healthcare needs. The following is important discharge information regarding your hospital visit. Diagnosis from Today's Visit Anxiety Heart rate fast Palpitations What to Do Next Instructions from Your Care Team Discharge Event Monitor Instructions - Ordered -- 12/11/22 13:26:37 EDT, You have been ordered mobile outpatient telemetry. You should receive a device in the mail with further instructions. If you have not received a device within 7 days after discharge, please call [facility] at [phone]. Post Acute Orders No qualifying data available. You Need to Schedule the Following Appointments Follow Up with DIDI PHYSICIAN When Within 2-4 days Follow Up with INES TORRES When Within 2-4 days Where: [address] [facility] [address] [place] [address]- [phone] Business (1) Follow Up with AYAN HERNANDES When Within 2-4 days Why: Return to ED if symptoms worsen Where: [address] [facility] [place] [address]- [phone] Business (1) Follow Up with Go to emergency room if symptoms worsen When Within 2-4 days Allergies NKA Medications Please ask your primary doctor or pharmacist before taking any other medication not listed, including over the counter drugs, herbal medications, vitamins and or supplements as they may interact with your home medications. Please take this list to your next doctor s visit. Bring all medications you take, including over the counter medications, herbals and other supplements with you to your doctor s visit. Patients and families are reminded to discard old lists and to update any records with all medication providers or retail pharmacies. Education Materials Anxiety Reaction Anxiety is the feeling we all get when we think something bad might happen. It is a normal response to stress and usually causes only a mild reaction. When anxiety becomes more severe, it can interfere with daily life. In some cases, you may not even be aware of what it is you re anxious about. There may also be a genetic link or it may be a learned behavior in the home. Both psychological and physical triggers cause stress reaction. It's often a response to fear or emotional stress, real or imagined. This stress may come from home, family, work, or social relationships. During an anxiety reaction, you may feel: Helpless Nervous Depressed Irritable Your body may show signs of anxiety in many ways. You may experience: Dry mouth Shakiness Dizziness Weakness Trouble breathing Breathing fast (hyperventilating) Chest pressure Sweating Headache Nausea Diarrhea Tiredness Inability to sleep Sexual problems Home care Try to locate the sources of stress in your life. They may not be obvious. These may include: oDaily hassles of life (such as traffic jams, missed appointments, or car troubles) oMajor life changes, both good (new baby or job promotion) and bad (loss of job or loss of loved one) oOverload: feeling that you have too many responsibilities and can't take care of all of them at once oFeeling helpless or feeling that your problems are beyond what you re able to solve Notice how your body reacts to stress. Learn to listen to your body signals. This will help you take action before the stress becomes severe. When you can, do something about the source of your stress. (Avoid hassles, limit the amount of change that happens in your life at one time and take a break when you feel overloaded). Unfortunately, many stressful situations can't be avoided. It is necessary to learn how to better manage stress. There are many proven methods that will reduce your anxiety. These include simple things like exercise, good nutrition, and adequate rest. Also, there are certain techniques that are helpful: oRelaxation oBreathing exercises oVisualization oBiofeedback oMeditation For more information about this, consult your healthcare provider or go to a local bookstore and review the many books and tapes available on this subject. Follow-up care If you feel that your anxiety is not responding to self-help measures, contact your healthcare provider or make an appointment with a counselor. You may need short-term psychological counseling and temporary medicine to help you manage stress. Call 911 Call 911 if any of these happen: Trouble breathing Confusion Drowsiness or trouble wakening Fainting or loss of consciousness Rapid heart rate Seizure New chest pain that becomes more severe, lasts longer, or spreads into your shoulder, arm, neck, jaw, or back When to seek medical advice Call your healthcare provider right away if any of these happen: Your symptoms get worse Severe headache not relieved by rest and mild pain reliever [phone] [employer]. [address] [place] [address]. All rights reserved. This information is not intended as a substitute for professional medical care. Always follow your healthcare professional's instructions. Heart Palpitations Palpitations are the feeling that your heart is beating hard, fast, or irregular. Some describe it as pounding or skipped beats. Palpitations may occur in someone with heart disease, but can also occur in a healthy person. Heart-related causes: Arrhythmia (a change from the heart's normal rhythm) Heart valve disease Disease of the heart muscle Coronary artery disease High blood pressure Qeh-uvwde-djtllqi causes: Certain medicines such as asthma inhalers and decongestants Some herbal supplements, energy drinks and pills, and weight loss pills Illegal stimulant drugs such as cocaine, crank, methamphetamine, PCP, bath salts, or ecstasy Caffeine, alcohol, and tobacco Medical conditions such as thyroid disease, anemia, anxiety, and panic disorder Sometimes the cause can't be found. Home care Follow these home care tips: Don't use too much caffeine, alcohol, tobacco, or any stimulant drugs. Tell your doctor about any prescription or pojn-sth-wwncgrn or herbal medicines you take. Follow-up care Follow up with your doctor, or as advised. Call 911 This is the fastest and safest way to get to the emergency department. The paramedics can also begin treatment on the way to the hospital, if needed. Don't wait until your symptoms are severe to call 911. These are reasons to call 911: Chest pain Shortness of breath Feeling lightheaded, faint, or dizzy Fainting or loss of consciousness Very irregular heartbeat Rapid heartbeat that makes you uncomfortable Slower than usual heart rate associated with symptoms Slower than usual heart rate Chest pain with weakness, dizziness, heavy sweating, nausea, or vomiting Extreme drowsiness or confusion Weakness of an arm or leg, or on 1 side of the face Difficulty with speech or vision When to seek medical advice Call your healthcare provider right away if you have palpitations and any of the following: Weakness Dizziness Lightheadedness Fainting [phone] [employer]. [address] [place] [address]. All rights reserved. This information is not intended as a substitute for professional medical care. Always follow your healthcare professional's instructions. Additional Information VACCINATE! IT SAVES LIVES! Members of the community who have not yet received the COVID-19 vaccine and would like to receive it can visit one of [facility] vaccine clinics. There are many vaccine clinic locations within the [facility]. For locations and available times, please visit [email or web address] [email or web address] It is important to note that some COVID mobile vaccine clinics are held outdoors and may be canceled in rainy or stormy conditions. To learn more about pediatric vaccinations (ages 5-11), we invite you to visit the [facility] webpage. [email or web address]-[email or web address] To learn more about the COVID-19 vaccine, we invite you to visit the CDC website for a list of frequently asked questions. https://www.cdc.gov/coronavirus/2 019-ncov/vaccines/faq.html [facility] Patient Portal Access Instructions: Stay connected with your healthcare team and access your personal medical information anytime with the [facility] Patient Portal. If you would like a full copy of your medical records please contact the [facility] Medical Records Department Tuesday through Tuesday between 8a.m. and 4:30p.m. Please follow the directions below to access the portal: 1.Access the email account you provided upon registration to the [facility].2.Look for an invitation email from [facility].3.Open the email and access the invitation link: Accept Invitation to [facility].Fill in the required nichols to create your account. Sign into [email or web address] with your username and password that you created in the above steps to stay up to date. You can then view a summary of results, a summary of your visits, and the ability to download your summaries to your computer or send the information securely to a physician. Remember that your healthcare information is confidential, so carefully consider who you will allow to register on the [facility] Patient Portal for access to your information. You can also access the [facility] Patient Portal on the [employer]. Simply click on Health Records under Health Data and then click on the [facility] logo. HOW TO SAFELY DISPOSE OF PRESCRIPTION MEDICATIONS Please use one of the following methods to safely dispose of your unused medications. 1.Use a drug disposal kit: the drug disposal pouch allows you to safely discard your old and unused drugs. Ask your nurse to give you one when you are discharged.2.Visit a local take-back location: Many local pharmacies and police departments have programs that collect old and unwanted prescription drugs. Call your local pharmacy or go to http://Synata.Huupy/5V1Wh6e to find one close to you.3.Make use of household items: Use cat litter or old coffee grounds to dispose medications if other options are not available. Mix your drugs with these household products, seal them in an airtight container and throw it into the garbage. Call [facility]: [phone] to be sure your drugs can be disposed of in this way. Some medicines may require a different approach.4.Never flush your medications down the toilet. IF YOU HAVE BEEN PRESCRIBED AN OPIOIDS FOR PAIN If you have been prescribed an opioid (such as hydrocodone, oxycodone or morphine), it is critical to understand the possible side effects and risks of opioid pain medications. Even when taken as directed, opioids can have several side effects including: Tolerance, meaning you might need to take more of a medication for the same pain relief. Nausea, vomiting and/or constipation. Sleepiness, dizziness, dry mouth, confusion, depression or itching. Physical dependence, meaning you have withdrawal symptoms when a medication is stopped ? this can develop within a few days. KNOW YOUR RESPONSIBILITIES It is important to know exactly how much and how often to take the opioid pain medications you are prescribed. Never take opioids in higher amounts or more often than prescribed. Do not combine opioids with alcohol or other drugs that cause drowsiness, such as benzodiazepines, also known as benzos, including diazepam and alprazolam, muscle relaxants or sleep aids. Never sell or share prescription opioids. This is illegal. Store opioids in a secure place and out of reach of others (including children, family, friends and visitors). The last page(s) of this document has been signed and retained as a CHART COPY Signatures Patient Education Materials Anxiety Reaction Palpitations Medication Leaflets My discharge plan and instructions have been reviewed and explained to me and I,HERACLIO KEYS II understand my current condition and have read and understand these discharge instructions. I have received a written copy of the plan/instructions. If I have questions, I am aware that I should contact my doctor. Patient/Allied Health Instructor Signature: Date/Time: Relationship to Patient: ____ Witness Name/Signature: Date/Time: [facility] 12-11-2022 Note ORIGINAL HISTORY: Chest pain COMPARISON: No FINDINGS: The lungs and pleural spaces are clear. The cardiac silhouette is within normal limits. The pulmonary vasculature is within normal limits. IMPRESSION: Clear lungs. Interpreted by: Zhen Akbar MD Preliminary Report By: Zhen Akbar MD Electronically signed By Zhen Akbar MD Dictated Date: 12/11/2022 11:47:23 AM Prelim Date: 12/11/2022 11:47:41 AM Sign Date: 12/11/2022 11:47:41 AM Ordering Provider: FARIDA CORDERO [facility] 12-11-2022 Note Sinus rhythm Electronic Signature: MD FARIDA CORDERO MD 12/11/2022 10:52:54 [facility] 06-28-2020 Note HNO ID: [id number] Author: Fabi Carlson Service: ? Author Type: Nurse Practitioner Type: Progress Notes Filed: 06/28/2020 3:02 PM Note Text: Subjective The history is provided by the patient. No medical language specialist was used. Heraclio Keys is a 40 year old male who presents today for CC of sinus pressure that is worsening. Symptoms started about a week ago, and have worsening in past 24 hours. His is also having nasal congestion, post nasal drainage. He states that 3 weeks ago had similar symptoms and they seemed to get better but the past week, started all over again. Symptoms include: Fever (?100.4F): No or Chills: Yes Cough: No Shortness of breath: No or Difficulty breathing: No Fatigue: Yes Muscle aches: No Headache: Yes New loss of smell or taste: No Sore throat: No Nasal congestion: Yes or Rhinorrhea: Yes Nausea: No or Vomiting: No Diarrhea: No OTC meds/remedies that patient has tried: OTC cold medicine and saline. High risk category assessment No high risk factors Exposures: Sick contacts? Yes Family or close contacts with confirmed/probable COVID-19 in last 14 days? No He reports that he has never smoked. He uses smokeless tobacco. BP 142/72 Pulse 76 Temp 36.9 ?C (98.4 ?F) (Tympanic) Resp 16 Wt 70.3 kg (155 lb) SpO2 98% Social History Tobacco Use - Smoking status: Never Smoker - Smokeless tobacco: Current User Substance Use Topics - Alcohol use: Not on file - Drug use: Not on file No past medical history on file. I have confirmed and edited as necessary, the [facility] Review of Systems Constitutional: Negative for chills and fever. HENT: Positive for congestion and sinus pain. Negative for ear pain and sore throat. Respiratory: Negative for cough, sputum production, shortness of breath and wheezing. Cardiovascular: Negative for chest pain. Musculoskeletal: Negative for myalgias. Neurological: Positive for headaches. Objective Physical Exam Constitutional: He is well-developed, well-nourished, and in no distress. HENT: Head: Normocephalic and atraumatic. Right Ear: Tympanic membrane, external ear and ear canal normal. Left Ear: Tympanic membrane, external ear and ear canal normal. Nose: Mucosal edema and rhinorrhea present. Right sinus exhibits no maxillary sinus tenderness and no frontal sinus tenderness. Left sinus exhibits frontal sinus tenderness. Left sinus exhibits no maxillary sinus tenderness. Mouth/Throat: Uvula is midline and mucous membranes are normal. No oropharyngeal exudate, posterior oropharyngeal edema, posterior oropharyngeal erythema or tonsillar abscesses. Cardiovascular: Normal rate, regular rhythm and normal heart sounds. Pulmonary/Chest: Effort normal and breath sounds normal. He has no decreased breath sounds. He has no wheezes. He has no rhonchi. He has no rales. Lymphadenopathy: Head (right side): No submental, no submandibular, no tonsillar and no preauricular adenopathy present. Head (left side): No submental, no submandibular, no tonsillar and no preauricular adenopathy present. He has no cervical adenopathy. Right cervical: No superficial cervical adenopathy present. Left cervical: No superficial cervical adenopathy present. Nursing note and vitals reviewed. ASSESSMENT/PLAN: 1. Nasal congestion - ICD9: 478.19, ICD10: R09.81 (primary diagnosis) Flonase 2 sprays in each nostril once a day Tylenol (generic acetaminophen) 500 mg-2 tabs every 8 hrs. as needed for fever and aches Ibuprofen 600 mg (3-200mg tablets) every 6 hours -Sudafed (generic is fine), behind the counter, 2x30 mg tabs twice daily as needed for congestion 2. Sinus pain - ICD9: 478.19, ICD10: J34.89 Possible sinusitis due to unilateral sinus pain Start augmentin 3. Suspected COVID-19 virus infection - ICD9: V01.79, ICD10: Z20.822 Home isolation Testing ordered Comfort measures discussed When to seek higher level of care Notified in 24-48 hours with results, available on [email or web address] CORONAVIRUS - Meets symptom-based criteria for testing and is low risk. - Patient scheduled for testing at the time of visit. - Instructed to isolate pending test results - Discussed symptom monitoring and supportive care - Red flag symptoms requiring follow up discussed This patient encounter involved the screening or treatment of novel coronavirus infection (COVID-19). Diagnosis and treatment plan were discussed and questions were answered to the patient's satisfaction. Pt acknowledged understanding of concepts and follow up plan. Specific signs and symptoms that would indicate the need for higher level of care were discussed in detail warranting prompt ER evaluation. Fabi Carlson APRN.[facility] Evaluation + Plan note No data available for this section [facility] Evaluation note Diagnosis Nasal congestion Other diseases of nasal cavity and sinuses [facility] Diagnosis Nasal congestion- Primary Other diseases of nasal cavity and sinuses Nasal congestion Other diseases of nasal cavity and sinuses [facility]* Diagnosis Deviated nasal septum Chronic maxillary sinusitis Chronic ethmoidal sinusitis Chronic rhinitis Hypertrophy of nasal turbinates documented in [facility] for [facility] Narrative* Auth/Cert (Routine) Specialty Diagnoses / Procedures Referred By Daly t Referred To Contact Diagnoses Deviated nasal septum Chronic maxillary sinusitis Chronic ethmoidal sinusitis Chronic rhinitis Hypertrophy of nasal turbinates Procedures MS SEPTOPLASTY/SUBMUCOUS RESECJ W/WO CARTILAGE GRF MS SUBMUCOUS RESCJ INFERIOR TURBINATE PRTL/COMPL MS RPR NSL VLV COLLAPSE SUBQ/SBMCSL LAT WALL IMPLT MS NASAL/SINUS ENDOSCOPY W/MAXILLARY ANTROSTOMY MS NASAL/SINUS NDSC W/TOTAL ETHOIDECTOMY MS STRTCTC CPTR ASSTD PX EXTRADURAL CRANIAL SEPTOPLASTY; BILATERAL INFERIOR TURBINATE REDUCTION; BILATERAL LATERA IMPLANT; BILATERAL MAXILLARY ANTROSTOMY; BILATERAL TOTAL ETHMOIDECTOMY; STEREOTACTIC COMPUTER-ASSISTED (NAVIGATIONAL) PROCEDURE SUBMUCOUS RESECTION INFERIOR TURBINATE REPAIR OF NASAL VALVE COLLAPSE WITH SUBCUTANEOUS/SUBMUCOSAL LATERAL WALL IMPLANT(S) NASAL SINUS ENDOSCOPY WITH MAXILLARY ANTROSTOMY NASAL SINUS ENDOSCOPY WITH ETHMOIDECTOMY TOTAL ANTERIOR AND POSTERIOR STEREOTACTIC CRANIOTOMY CRANIAL EXTRADURAL Alberto Alvarez, DO [address] [place] [address] Phone: tel: fax: [facility] [address] [place] [address] Phone: tel: Referral ID Status Reason Start Date Expiration Date Visits Re quested Visits Authorized [id number] 1 1 [facility] Summary Purpose Family History No Family History Records Found No data available for this section No Family History Records FoundNo Family History Records Found Advance Directives No Advanced Directives Records FoundNo Advanced Directives Records FoundNo Advanced Directives Records Found Reason for Referral Specialty Diagnoses / Procedures Referred By Daly t Referred To Contact Radiology Diagnoses Nasal congestion Procedures CT maxillofacial wo IV contrast Alberto Alvarez, [address] [place] [address] Referral ID Status Reason Start Date Expiration Date Visits Re quested Visits Authorized [id number] Closed 08/16/2023 10/15/2023 1 1 Additional Source Comments (unrecognized sect ion and content) No Status Records FoundNo Status Records FoundNo Status Records Found INFORMATION SOURCE (unrecogn ized section and content) DATE CREATED AUTHOR 05/23/2021 [facility] DATE CREATED AUTHOR AUTHOR'S ORGANIZ ATION 12/21/2023 [facility] DATE CREATED AUTHOR AUTHOR'S ORGANIZ ATION 02/21/2024 [facility] Patient Care team informatio n (unrecognized section and content) Composite Worker Relationship Specialty Start Date End Date Savana Louie DO [address] [address] PCP - General Family Medicine 05/16/23 Composite Worker Relationship Specialty Start Date End Date Savana Louie DO [address] [place] [address] [place] [id number] PCP - General Family Medicine 02/09/24 Reason for Visit (unrecogniz ed section and content) Specialty Diagnoses / Procedures Referred By Contac t Referred To Contact Radiology Diagnoses Nasal congestion Procedures CT maxillofacial wo IV contrast Alberto Alvarez DO [address] [place] [address] Referral ID Status Reason Start Date Expiration Date Visits Re quested Visits Authorized [id number] Closed 08/16/2023 10/15/2023 1 1 Reason Comments No Show Pt no showed for tru t on 12/19/23 Source Comments (unrecognize d section and content) In the event this informatio n is protected by the Federal Confidentiality of Alcohol and Drug Abuse Patient Records regulations: The Federal rules restrict any use of the information to criminally investigate or prosecute any alcohol or drug abuse patient.[facility] Scheduled Active and Recently Administ ered Medications (unrecognized section and content) Medication Order 02/14/2024 02/15/2024 02/16/2024 acetaminophen (Tylenol) tablet 1,000 mg (COMPLETED) 1,000 mg, Oral, Once, On Jazmin 02/16/24 at 0615, For 1 dose, Preprocedure, Administer 60 minutes prior to surgery. 657 (Given - Provid er: Tomasa Ni RN) famotidine (Pepcid) tablet 20 mg (COMPLETED)(Linked Group 1) 20 mg, Oral, Once, On Jazmin 02/16/24 at 0615, For 1 dose, Preprocedure, IV or Oral - Use PO option as first line. If unable to tolerate PO, then okay to use IV. 0658 (Given - Provid er: Tomasa Ni RN) oxymetazoline (Afrin) 0.05 % nasal spray 2 spray (COMPLETED) 2 spray, Each Nostril, Senior Internet Sales Consultant to [employer].R., On Jazmin 02/16/24 at 0615, For 1 dose, Preprocedure 0658 (Given - Provid er: Tomasa Ni RN) sodium chloride 0.9% (NS) flush 5-40 mL 5-40 mL, IntraVENous, Every 12 hours, First dose on Jazmin 02/16/24 at 0615, Preprocedure, For Line Patency: Peripheral IV = 5 mL; Midline or Central Line = 10 mL/lumen. If following IV push medication, administer flush at same rate as the IV push. Flush volume is determined by type of infusion therapy being given. For non-viscous solutions use: Peripheral IV = 5 mL Midline or Central Line = 10 mL/lumen For viscous solutions (i.e. blood components, parenteral nutrition, contrast media, or after obtaining blood sample) use: Peripheral IV = 10 mL Midline or Central Line = 20 mL/lumen 0615 (Canceled Entry - Provider: Automatic Discharge Provider - Comment: Automatically canceled at discontinue of medication order) Continuous Medication Order 02/14/2024 02/15/2024 02/16/2024 lactated Ringer's (LR) infusion 50 mL/hr, IntraVENous, Continuous, Starting on Jazmin 02/16/24 at 0615, Preprocedure, Upon admission to sameday - please start iv if patient does not have iv access. Use 500ml NS for patients on dialysis. 0655 (New Bag - Prov ider: Gema Head CRNA)0737 (Continued by Anesthesia - Provider: Gema Head CRNA)0954 (Stopped - Provider: Gema Head CRNA) PRN Medication Order 02/14/2024 02/15/2024 02/16/2024 ALPRAZolam (Niravam) disintegrating tablet 0.5 mg 0.5 mg, Oral, PRN, anxiety, Starting on Jazmin 02/16/24 at 0616, Preprocedure, Using dry hands, place tablet on top of tongue and allow to disintegrate. Administration with water is not necessary. 0635 (Given - Provid er: Tomasa Ni RN) ceFAZolin (Ancef) injection (CANCELED) As needed, Starting on Jazmin 02/16/24 at 0830, Intraprocedure 0830 (Given - Provid er: Alberto Alvarez, DO - Comment: mixed in 500mL NS) Cocaine HCl 40 MG/ML solution (CANCELED) As needed, Starting on Jazmin 02/16/24 at 0828, Intraprocedure 0828 (Given - Provid er: Alberto Alvarez, - Comment: on cottonoids) diphenhydrAMINE (BENADryl) injection 12.5 mg 12.5 mg, IntraVENous, Once PRN, itching, Starting on Jazmin 02/16/24 at 0942, For 1 dose, Recovery (only) hydrALAZINE (Apresoline) injection 5 mg(Linked Group 2) 5 mg, IntraVENous, Every 15 min PRN, high blood pressure, for SBP greater than 160 mmHg for 2 consecutive measurements taken from different sites, Starting on Jazmin 02/16/24 at 0942, For 2 doses, Recovery (only), PRN for SBP > 160 for 2 consecutive measurements, and if one of the following conditions is met: 1) If IV labetolol is ineffective. 2) If HR is under 60. 3) If patient has heart block, COPD or asthma. If both labetalol and hydralazine ineffective, notify anesthesia provider. HYDROmorphone (Dilaudid) injection 0.25 mg 0.25 mg, IntraVENous, Every 5 min PRN, moderate pain (4-6), Starting on Jazmin 02/16/24 at 0942, For 4 doses, Recovery (only), For Phase I. If Phase II oral narcotics have been administered in the last 60 minutes, do not administer IV narcotics unless specifically approved by provider. HYDROmorphone (Dilaudid) injection 0.5 mg 0.5 mg, IntraVENous, Every 5 min PRN, severe pain (7-10), Starting on Jazmin 02/16/24 at 0942, For 4 doses, Recovery (only), For Phase I. If Phase II oral narcotics have been administered in the last 60 minutes, do not administer IV narcotics unless specifically approved by provider. labetalol (Normodyne,Trandate) injection 5 mg(Linked Group 2) 5 mg, IntraVENous, Every 10 min PRN, high blood pressure, for SBP greater than 160 mmHg for 2 consecutive measurements taken from different sites., Starting on Jazmin 02/16/24 at 0942, For 2 doses, Recovery (only), PRN for SBP >160 for 2 consecutive measurements, if HR is 60 or greater. If beta ruth is contraindicated (HR less than 60, heart block, COPD or asthma) use hydralazine IV order. lidocaine-EPINEPHrine (Xylocaine W/EPI) 1 %-1:[id number] injection (CANCELED) As needed, Starting on Jazmin 02/16/24 at 0834, Intraprocedure 0834 (Given - Provid er: Alberto Alvarez DO) LORazepam (Ativan) injection 0.5 mg 0.5 mg, IntraVENous, Once PRN, for anxiety or muscle spasm., Starting on Jazmin 02/16/24 at 0942, For 1 dose, Recovery (only), For IV doses dilute dose with 1ml NS. meperidine (Demerol) injection 12.5 mg 12.5 mg, IntraVENous, Every 5 min PRN, shivering, Starting on Jazmin 02/16/24 at 0942, For 2 doses, Recovery (only), May give every 5 minutes to max of 25mg. Notify Anesthesia Provider before administration. ondansetron (Zofran) injection 4 mg 4 mg, IntraVENous, Once PRN, nausea, Starting on Jazmin 24 at 0942, For 1 dose, Recovery (only), Initial antiemetic therapy. oxyCODONE (Roxicodone) immediate release tablet 10 mg(Linked Group 3) 10 mg, Oral, PRN, severe pain (7-10), Starting on Jazmin 24 at 0942, For 1 dose, Recovery (only), Administer when patient is able to tolerate PO meds oxyCODONE (Roxicodone) immediate release tablet 5 mg(Linked Group 3) 5 mg, Oral, PRN, moderate pain (4-6), Starting on Jazmin 24 at 0942, For 1 dose, Recovery (only), Administer when patient is able to tolerate PO meds sodium chloride 0.9 % bolus 500 mL 500 mL, IntraVENous, at 1,000 mL/hr, Administer over 0.5 Hours, PRN, Anti-nausea, Starting on Jazmin 02/16/24 at 0942, Recovery (only), Indications: Anti-nausea sodium chloride 0.9 % infusion 5-250 mL/hr, IntraVENous, PRN, if patient receiving piggyback infusions and maintenance fluids are not ordered OR KVO fluids to protect IV site / prevent frequent line interruptions / long duration, Starting on Jazmin 02/16/24 at 0603, Preprocedure, For piggyback infusion, administer at same rate as piggyback for a total of 25 mL. Enter 25 mL into dose field and piggyback rate into rate field of order. If piggyback is infusing at a rate less than 100 mL/hr, enter 25 mL into dose field and 100 mL/hr into rate field of order. For KVO fluids, enter rate of 20 mL/hr or less into rate field of order. sodium chloride 0.9 % irrigation solution (CANCELED) As needed, Starting on Jazmin 02/16/24 at 0831, Intraprocedure 0831 (Given - Provid er: Alberto Alvarez, DO - Comment: used with microdebrider) sodium chloride 0.9% (NS) flush 5-40 mL 5-40 mL, IntraVENous, PRN, line care, After every IV line use, Starting on Jazmin 02/16/24 at 0603, Preprocedure, For Line Patency: Peripheral IV = 5 mL; Midline or Central Line = 10 mL/lumen. If following IV push medication, administer flush at same rate as the IV push. Flush volume is determined by type of infusion therapy being given. For non-viscous solutions use: Peripheral IV = 5 mL Midline or Central Line = 10 mL/lumen For viscous solutions (i.e. blood components, parenteral nutrition, contrast media, or after obtaining blood sample) use: Peripheral IV = 10 mL Midline or Central Line = 20 mL/lumen Linked Groups Order Group 1: famotidine (Pepcid) tablet 20 mg (COMPLETED)Jump to med 20 mg, Oral, Once, On Jazmin 02/16/24 at 0615, For 1 dose, Preprocedure, IV or Oral - Use PO option as first line. If unable to tolerate PO, then okay to use IV. Or famotidine (Pepcid) 20 mg in sodium chloride (PF) 0.9 % 10 mL injection (COMPLETED) 20 mg, IntraVENous, Administer over 2 Minutes, Once, On Jazmin 02/16/24 at 0615, For 1 dose, Preprocedure, IV or Oral Group 2: labetalol (Normodyne,Trandate) injection 5 mgJump to med 5 mg, IntraVENous, Every 10 min PRN, high blood pressure, for SBP greater than 160 mmHg for 2 consecutive measurements taken from different sites., Starting on Jazmin 02/16/24 at 0942, For 2 doses, Recovery (only), PRN for SBP >160 for 2 consecutive measurements, if HR is 60 or greater. If beta ruth is contraindicated (HR less than 60, heart block, COPD or asthma) use hydralazine IV order. Or hydrALAZINE (Apresoline) injection 5 mgJump to med 5 mg, IntraVENous, Every 15 min PRN, high blood pressure, for SBP greater than 160 mmHg for 2 consecutive measurements taken from different sites, Starting on Jazmin 02/16/24 at 0942, For 2 doses, Recovery (only), PRN for SBP > 160 for 2 consecutive measurements, and if one of the following conditions is met: 1) If IV labetolol is ineffective. 2) If HR is under 60. 3) If patient has heart block, COPD or asthma. If both labetalol and hydralazine ineffective, notify anesthesia provider. Group 3: oxyCODONE (Roxicodone) immediate release tablet 5 mgJump to med 5 mg, Oral, PRN, moderate pain (4-6), Starting on Jazmin 02/16/24 at 0942, For 1 dose, Recovery (only), Administer when patient is able to tolerate PO meds Or oxyCODONE (Roxicodone) immediate release tablet 10 mgJump to med 10 mg, Oral, PRN, severe pain (7-10), Starting on Jazmin 02/16/24 at 0942, For 1 dose, Recovery (only), Administer when patient is able to tolerate PO meds FOR RECORDS PERTAINING TO PATIENTS WHO ARE OR HAVE BEEN ENROLLED IN A CHEMICAL DEPENDENCY/SUBSTANCEABUSE PROGRAM, SOME INFORMATION MAY BE OMITTED. This clinical summary was aggregated from multiple sources. Caution should be exercised in using it in the provision of clinical care. This summary normalizes information from multiple sources, and as a consequence, information in this document may materially change the coding, format and clinical context of patient data. In addition, data may be omitted in some cases. CLINICAL DECISIONS SHOULD BE BASED ON THE PRIMARY CLINICAL RECORDS. [facility] [employer] [facility]. provides no warranty or guarantee of the accuracy or completeness of information in this document.
[2024-02-21 20:21] LABS: Anion Gap 10 (5-15); BUN 12 mg/dL (7-18); BUN/Creat Ratio 14.1 RATIO (10-20); Calcium,Total 8.8 mg/dL (8.5-10.1); Chloride 102 mmol/L (98-107); Creatinine, Serum 0.85 mg/dL (0.70-1.30); EST Glomerular Filtration Rate 105 mL/min (>60); Est Glom Filt Rate - Afr Amer 127 mL/min (>60); Estimated Creatinine Clearance 125.33 ml/min; Glucose 126 mg/dL (74-106); Potassium 3.6 mmol/L (3.5-5.1); Sodium Level 137 mmol/L (136-145)
--- NOTE | 2024-02-21 21:25 | EX.ED.DYSGE1 ---
HPI History of Present Illness Chief Complaint: Shortness of Breath Informant: patient and spouse/S.O. Narrative Narrative: Postop day 5 septoplasty with sinus surgery by Dr. Jimenez in [place]. He has splints on his septum. He was prescribed oxycodone and ran out yesterday. Today increasing pain left side his face. He is feeling warm throughout his body. His appointment with his doctor tomorrow. Denies fevers. He has been using nasal flushes. Denies chest pains or dyspnea. Pain progressed since yesterday decided come in today. No allergies. PFSH PFSH Home Medications ?Medication ?Instructions ?Recorded ?Last Taken ?Type amoxicillin 875 mg-potassium 875 mg PO Q12H #20 TABLETS 02/21/24 Unknown Rx clavulanate 125 mg tablet oxycodone-acetaminophen 5 mg-325 1 tab PO Q6H PRN PRN Pain 3 days 02/21/24 Unknown Rx mg tablet #12 TABLETS Allergy/AdvReac Type Severity Reaction Status Date / Time No Known Allergies Allergy Verified 02/21/24 19:32 Surgical History Status post correction of deviated nasal septum Social History Smoking Status: Never smoker ROS ROS ED Constitutional Constitutional ED: Reports sweats; Denies chills or fever(s) Eyes Eyes: Denies change in vision ENT ENT ED: Reports other Details: Facial pain ; Denies dysphagia or sore throat Cardiovascular Cardiovascular: Denies chest pain, leg edema, palpitations or racing heartbeat Respiratory/Chest Respiratory/Chest: Denies cough, dyspnea or dyspnea on exertion Gastrointestinal Gastrointestinal: Denies abdominal pain, diarrhea, nausea or vomiting Genitourinary Genitourinary ED: Denies dysuria, hematuria or urinary frequency Musculoskeletal Musculoskeletal: Denies back pain, extremity pain or neck pain Integumentary Denies rash or wounds Neurologic Neurologic: Denies headache(s), paresthesias or weakness EXAM Physical Exam Const Vital Signs: 02/21/24 19:27 02/21/24 19:29 02/21/24 19:42 Temperature 98.3 F 98.3 F Temperature Source Oral Axillary Pulse Rate 158 H 138 H Respiratory Rate 22 H 22 H Respiratory Effort Normal Non-Labored Respiratory Depth Normal Respiratory Pattern Normal Blood Pressure 136/93 H 136/93 H Blood Pressure Mean 107 107 Pulse Ox 98 99 Oxygen Delivery Method Room Air Room Air Room Air 02/21/24 20:26 02/21/24 21:00 02/21/24 21:36 Temperature Temperature Source Pulse Rate 95 Respiratory Rate Respiratory Effort Respiratory Depth Respiratory Pattern Blood Pressure 99/65 115/76 Blood Pressure Mean 76 89 Pulse Ox 95 98 Oxygen Delivery Method Room Air Room Air 02/21/24 22:20 02/21/24 22:21 Temperature 98.3 F Temperature Source Pulse Rate 95 Respiratory Rate 20 H 20 H Respiratory Effort Respiratory Depth Respiratory Pattern Blood Pressure 115/76 Blood Pressure Mean 89 Pulse Ox 98 Oxygen Delivery Method Positive well nourished and well developed Constitutional Narrative: Uncomfortable, nontoxic General Appearance ED: well developed HEENT Reports moist mucous membranes HEENT Narrative: Septal splints bilaterally, nasal drainage left side. Mild swelling maxillary. normocephalic and atraumatic Eyes EOMs intact bilaterally and conjunctivae normal Eyes Narrative: No proptosis or entrapment. General Eye ED: Yes normal appearance of both eyes Neck no lymphadenopathy and supple General: Negative for tenderness Chest Wall Chest: Negative for tenderness Resp normal respiratory effort and normal air movement Effort and Inspection: symmetric chest movement; Negative for respiratory distress Cardio regular rhythm and no murmurs Rate: tachycardic Peripheral Pulses: pulses 2+ throughout GI normal to inspection, nondistended, normoactive bowel sounds and non-tender Palpation: Negative for guarding or rebound tenderness present Back/Spine no CVA tenderness and no thoracic nor lumbar tenderness Extremity normal to inspection General Extremety ED: Negative for edema or tenderness General Extremity: Negative for edema Neuro oriented x3 and no sensory deficits noted Sensorium / Orientation: awake and alert Skin no rashes or lesions noted and no wounds MDM MDM MDM Narrative Medical decision making narrative: Interventions / MDM: Differential diagnosis: Postop pain, sinusitis Diagnosis considered but do not suspect: Postop infection My EKG interpretation: N/A Imaging independently reviewed and interpreted by myself: CT sinus with contrast: Opacification left maxillary sinus, postop changes External documents reviewed: N/A Test considered but not ordered:N/A ED course: Patient tachycardic due to pain. He has no dyspnea for concerns for PE. Status post sinus surgery with septoplasty. Increasing pain, IV established fentanyl ordered. Labs with CT sinus with IV contrast for further evaluation. Reevaluation, pain controlled. Heart rate improved. CT postop findings with opacified maxillary sinus. Pain in that area. No fevers. Will place him on Augmentin. Meds to bed with Augmentin and Percocet. He will keep his appointment with his ENT tomorrow. Images placed on a disk. Re-evaluation: stable Disposition discussed with patient/family/significant other: Patient and significant other Case discussed with consulting clinician: N/A This note was generated with [employer] dictation software. It may contain incorrect words, spelling, and punctuation that were not noted in checking the note before signing. Lab Data Attestation: I reviewed the patient's lab results. Labs: Laboratory Results - last 24 hr 02/21/24 19:59 WBC 8.0 RBC 4.66 Hgb 14.6 Hct 41.4 MCV 88.8 MCH 31.3 MCHC 35.3 RDW Std Deviation 38.9 RDW Coeff of Jes[place] 12.1 Plt Count 271 MPV 9.2 Immature Gran % (Auto) 0.600 Neut % (Auto) 55.9 Lymph % (Auto) 27.8 [place] % (Auto) 14.3 H Eos % (Auto) 0.8 Baso % (Auto) 0.6 Absolute Neuts (auto) 4.5 Absolute Lymphs (auto) 2.21 Nucleated RBC % 0 Sodium 137 Potassium 3.6 Chloride 102 Carbon Dioxide 26.0 Anion Gap 10 BUN 12 Creatinine 0.85 Estim Creat Clear Calc 125.33 Est GFR (MDRD) Af Amer 127 Est GFR (MDRD) Non-Af 105 BUN/Creatinine Ratio 14.1 Glucose 126 H Calcium 8.8 Radiography Diagnostic Testing: Clinical Impression(s) from Imaging Studies Facial/Sinus 02/21/24 19:53 IMPRESSION: Pansinusitis status post septal surgery with what appear to be bilateral medial antrectomies. Question of surgical packing material along both sides of the nasal passages. Currently the nasal septum is midline. Electronically Signed: Rogers Hector MD at 21:52 EDT , Discharge Plan Triage Chief Complaint: Shortness of Breath ED Provider: Fortino March Dx/Rx/DC Orders Clinical Impression: Post-op pain, Sinusitis, acute maxillary, H/O sinus surgery Instructions: Managing Post-Op Pain at Home, ED Sinusitis (Antibiotic Treatment) Prescriptions: New oxycodone-acetaminophen 5-325 mg tablet 1 tab PO Q6H PRN PRN (Reason: Pain) 3 Days Qty: 12 0RF amoxicillin-pot clavulanate 875-125 mg tablet 875 mg PO Q12H Qty: 20 0RF Primary Care Provider: Care Physician,No Primary Referrals: Care Physician,No Primary [Primary Care Provider] - Activity Restrictions/Additional Instructions: CT scan opacification of your left maxillary sinus. Labs are stable. Take antibiotic as prescribed. Take pain medicines as needed. Keep your follow-up with Dr. Jimenez tomorrow. CT placed on a disk for you to bring to the office. Print Language: Swedish Disposition Disposition: Home, Self Care Discharge Date/Time: 02/21/24 22:23
[2024-02-21] MEDS: Amox/Clavulanate 875 MG Tablet PO (22:18)
== END 2024-02-21 22:23 | disposition home or self-care (01) ==
PROVIDERS: Emergency Provider Emergency Medicine; Visit Provider Emergency Medicine
DX: G89.18 Other acute postprocedural pain (principal); J01.00 Acute maxillary sinusitis, unspecified
CPT/HCPCS: 70487; 80048; 85025; 96374; 99283; Q9967; A4216